=== PATIENT | female | born 1945 | race Caucasian/White ===

== ENCOUNTER → 2016-04-25 | Outpatient (CLI) | payer MEDICARE ==
--- NOTE | 2016-04-25 15:29 | XR ---
EXAMINATION TYPE: XR chest 2V DATE OF EXAM: 04/25/2016 3:25 PM COMPARISON: 03/06/2016 HISTORY: Shortness of breath TECHNIQUE: Frontal and lateral views of the chest are obtained. FINDINGS: Scattered senescent parenchymal changes noted. Hyperinflation compatible with COPD. No evidence for infiltrate. No evidence for atelectasis. Heart size is stable. Mediastinal structures are stable and grossly unremarkable. No evidence for hilar prominence. Degenerative changes dorsal spine. IMPRESSION: 1. No evidence for acute pulmonary disease.
[2016-04-25 15:58] LABS: Anisocytosis Slight; Basophils # (A) 0.1 k/uL (0-0.2); Basophils % (A) 1 %; CH 25.4; CHCM 29.7; Eosinophils # (A) 0.1 k/uL (0-0.7); Eosinophils % (A) 1 %; HCT 41.7 % (34.0-46.0); Hypochromasia Marked; Luc # (Auto) 0.14; Luc % (Auto) 2; Lymphocytes # (A) 1.2 k/uL (1.0-4.8); Lymphocytes % (A) 13 %; MCH 24.7 pg (25.0-35.0); MCHC 28.8 g/dL (31.0-37.0); MCV 85.9 fL (80.0-100.0); Mean Platelet Volume 7.9; Monocytes # (A) 0.6 k/uL (0-1.0); Monocytes % (A) 7 %; Neutrophils # (A) 7.2 k/uL (1.3-7.7); Neutrophils % (A) 78 %; RBC 4.86 m/uL (3.80-5.40); RDW 17.5 % (11.5-15.5); WBC 9.3 k/uL (3.8-10.6); WBC (Perox) 9.26
[2016-04-25 16:02] LABS: Calcium 9.6 mg/dL (8.4-10.2); Potassium 4.7 mmol/L (3.5-5.1)
[2016-04-25 16:03] LABS: INR 1.1 (<1.1); Partial Thromboplastin Time 23.7 sec (22.0-30.0); Prothrombin Time 10.6 sec (9.0-12.0)
--- NOTE | 2016-04-25 16:09 | CT ---
EXAMINATION TYPE: CT thoracic spine wo con DATE OF EXAM: 04/25/2016 3:54 PM COMPARISON: CTA chest February 17, 2016. HISTORY: Compression fracture, thoracic spine pain. CT DLP: 1378.00 mGycm Automated exposure control for dose reduction was used. FINDINGS: Osseous structures are demineralized. There is redemonstration of moderate to severe compression type fracture deformity with sclerosis at T6 vertebral body level. There is new moderate compression type fracture deformity at T7 level which is fairly sclerotic suggesting subacute in age. No linear lucen cy is seen to suggest acute fracture at this time. Slight scoliotic curvature is present on coronal i mages. Spinal canal is maintained on sagittal images. No large posterior disc herniations are present . No significant spurring is present. Review of axial images confirms no large disc herniations or spinal canal stenosis at any level of th e thoracic spine. There is background of mild to moderate emphysematous change seen. There is partial visualization of cardiomegaly with multi lead pacemaker/AICD. There is moderate calcified atheroscle rotic change of aorta and upper abdominal branch vessels. IMPRESSION: NEW BUT SUSPECTED SUBACUTE MODERATE COMPRESSION FRACTURE AT T7 LEVEL. STABLE MODERATE TO SEVERE CHRON IC COMPRESSION FRACTURE T6 LEVEL. SPINAL CANAL IS MAINTAINED. ALIGNMENT IS STABLE.
[2016-04-25 16:13] LABS: Amorphous Sediment,Urine Few /hpf; Appearance,Urine Cloudy (Clear); Bacteria,Urine Occasional /hpf; Bilirubin,Urine Negative (Negative); Calcium Oxalate Crystals,Urine Few /hpf; Glucose,Urine (UA) Negative (Negative); Ketones,Urine Negative (Negative); Leukocyte Esterase,Urine Small (Negative); Mucus,Urine Rare /hpf; Nitrite,Urine Negative (Negative); Particle Count 17271; Protein,Urine 1+ (Negative); Squamous Epithelial Cell,Urine 49 /hpf (0-4); Urobilinogen,Urine <2.0 mg/dL (<2.0); WBC,Urine 21 /hpf (0-5)
[2016-04-25 17:45] LABS: RBC,Urine 19 /hpf (0-5); UA Billing (MACRO vs. MICRO) MICRO
== END | disposition home or self-care (01) ==
LOC: RADCTMAIN 14:59
PROVIDERS: ATTEND Orthopaedic Surgery Orthopaedic Surgery of the Spine
DX: S22.059A Unspecified fracture of T5-T6 vertebra, initial encounter for closed fracture (principal); Z01.818 Encounter for other preprocedural examination; Z01.812 Encounter for preprocedural laboratory examination; Z01.810 Encounter for preprocedural cardiovascular examination
CPT/HCPCS: 36415; 71020; 72128; 80048; 81001; 85025; 85610; 85730

== ENCOUNTER 2016-05-02 11:28 | Day surgery (SDC) | payer MEDICARE ==
[2016-04-27 13:36] VITALS: BMI 29.0
[~2016-05-02 11:28] MED LIST: FAMOTIDINE 20 MG/2 ML VIAL IV PRN; LACTATED RINGERS 1,000 ML IV SCH; LIDOCAINE 1% 20 ML VIAL (10MG/ML) FOR IV START INTRADERMA PRN; ONDANSETRON 4 MG/2 ML VIAL IVP PRN; ceFAZolin 2 GM in SODIUM CHLORIDE 0.9% 100 ML IVPB ONE
[2016-05-02] MEDS ORDERED: SUCCINYLCHOLINE CHLORIDE 100 MG/5 ML SYR IV ONE (13:15)
[2016-05-02] MEDS ORDERED: LIDOCAINE 1% INJ 10MG/ML (20 ML MDV) ONE (13:15)
[2016-05-02] MEDS ORDERED: ETOMIDATE 2 MG/ML 10 ML VIAL ONE (13:15)
[2016-05-02] MEDS ORDERED: MIDAZOLAM 2 MG/2 ML VIAL ONE (13:15)
[2016-05-02] MEDS ORDERED: KETAMINE 10 MG/ML 20 ML VIAL ONE (13:15)
[2016-05-02] MEDS ORDERED: ACETAMINOPHEN IV (For NPO) 1,000 MG/100 ML VIAL ONE (13:15)
[2016-05-02] MEDS ORDERED: BUPIVACAINE (PF) 0.5% 30 ML VIAL SQ ONE ×2 (13:46)
[2016-05-02] MEDS ORDERED: IOHEXOL 180 MG/ML 1 ML ML MISCELLANE ONE (14:13)
--- NOTE | 2016-05-02 14:46 | XR ---
FLUOROSCOPY 83 seconds of fluoroscopy time were utilized during T5-6 kyphoplasty. 4 images document the procedure .
[2016-05-02] MEDS ORDERED: DIAZEPAM 5 MG TAB PO PRN (14:50)
[2016-05-02] MEDS ORDERED: IBUPROFEN 600 MG TAB PO PRN (14:50)
[2016-05-02] MEDS ORDERED: HYDROcodone/APAP 5-325MG 1 EACH TAB PO PRN (14:50)
[2016-05-02] MEDS ORDERED: BENZOCAINE/MENTHOL LOZENG 1 EACH LOZENGE MUCOUS MEM PRN (14:50)
--- NOTE | 2016-05-02 14:50 | P.OP ---
Date of Procedure: 05/02/16 Preoperative Diagnosis: T5 and T6 vertebral compression fractures, osteoporotic, subacute Thoracic back pain Osteoporosis Postoperative Diagnosis: Same Anesthesia: GETA Pathology: other (T5 and T6 vertebral body biopsies sent to pathology separately in formalin) Condition: stable Disposition: PACU Description of Procedure: BRIEF OPERATIVE NOTE Preoperative Diagnosis: Vertebral compression fractures T5 and T6, osteoporotic subacute, thoracic back pain, osteoporosis Postoperative Diagnosis: Same Procedure: Kyphoplasty T5 and T6 Vertebral body biopsy T5 and T6 Use of biplanar fluoroscopic guidance Surgeon: Dr. Georges Water Purifier Operator: Navid Zazueta is present throughout the entire the case persistence during positioning, dissection, exposure, visualization, and all crucial elements of the case as well as closure. Anesthesia: General anesthesia Estimated blood loss: Less than 10 mL Specimen: Vertebral body biopsy from T5 and T6 sent to pathology in formalin Complications: None apparent Components implanted: Bone cement Disposition: To recovery room in good stable condition. OPERATIVE INDICATIONS The patient has been having issues in their back over the past couple of months. She was found have compression fractures at T5 and T6 with osteoporosis. The patient has been through conservative treatment. We try treating her with a brace but she was not tolerating this well. They attempted conservative care with bracing however they're not having any benefit despite brace use. They continue to have significant pain and debility due to their fracture. We discussed various treatment options including surgery, and the patient wishes to proceed with surgery. The patient has significant cardiac history and she was evaluated for risk stratification with her chaser tar. We discussed the risk, patient's alternatives and benefits of surgery including but not limited to, risk of bleeding risk of infection, risk of need for further surgery, risk of decreased, loss of motion, loss of function, cement extravasation, nerve damage, paralysis, heart attack, blindness and . OPERATIVE SUMMARY After discussing all the risks, patient alternatives and benefits at length, the patient elected to proceed with surgical intervention, signed informed consent, and presented for their procedure. The patient was seen and examined in the preoperative holding area and the surgical site was marked. The patient was given antibiotics and brought to the operating room. The patient was sedated and intubated by anesthesia in standard fashion. The patient was positioned on to the operating room table in a prone position on the appropriate well-padded and well molded bilateral chest rolls. We were careful to pad any bony prominences and pressure points. We were careful to maintain the patient's cervical spine and good neutral alignment and position throughout. We used 2 C-arm machines to establish biplanar fluoroscopic guidance in AP and lateral positions. We were able to localize the fractures appropriately at T5 and T6. The patient was prepped and draped in a normal standard fashion. An appropriate timeout and keystone protocol performed. We were able to proceed with the surgery. The local wound area was infiltrated with local anesthetic. An incision was made over the lateral aspect of the pedicle over the appropriate levels with a small 2 mm stab incision on the right at T5 and T6. Intraoperative fluoroscopy was taken which showed a marker at the appropriate level at T5 and T6. With the appropriate level positively confirmed, I was able to position a sharp trocar over the lateral aspect of the pedicle. As able to advance the trocar into the pedicle and into the posterior aspect of vertebral body being careful to avoid penetration cephalad caudad or medially. The trocar was placed appropriately into the posterior aspect of vertebral body at the appropriate levels. This was confirmed with C-arm guidance. With the trocar intact I was then able to take a bone biopsy with a biopsy punch or a bony drill. The biopsy specimen was passed off to be sent to pathology in formalin. I was then able to place the kyphoplasty balloon within the vertebral body. The position was checked on C-arm. I was able to inflate the balloon under low pressure and visualization with C-arm. The balloon was well enclosed within the vertebral body. The cement was prepared. With the cement at appropriate working condition the balloons were deflated and removed. I was able to place bony cement with trocar with the cement delivery device under low pressure. It had good fill within the vertebral body. I placed approximately 3 mL of bone cement in the vertebral body at T5 in approximately 2 mL into the vertebral body of T6. There is no evidence of any extravasation of the cement posteriorly toward the canal. The cement was well contained at the appropriate levels at T5 and T6 with some of the cement into the disc spaces without evidence of protrusion posteriorly. The cement was allowed to cure appropriately. The trochars removed and final images were taken on C-arm. This showed the cement at the appropriate levels. We were able to proceed with closure. The wound was cleaned and dried and dressed with the appropriate dressing. The drapes were broken down. The patient was gently rolled back onto their hospital bed being careful to maintain their cervical spine and good neutral alignment and position. They were woken up by anesthesia, extubated, and brought to the recovery room in good stable condition. The patient will be admitted to the hospital for observation and for appropriate postoperative care, medical management and monitoring. We will continue to follow them closely about the postoperative course.
[2016-05-02] MEDS: SODIUM CHLORIDE 0.9% 1,000 ML IV SCH (18:11)
[2016-05-02] MEDS: HYDROcodone/APAP 5-325MG 1 EACH TAB PO PRN (18:13)
[2016-05-02] MEDS: ceFAZolin 2 GM in SODIUM CHLORIDE 0.9% 100 ML IVPB SCH (21:51)
[2016-05-03] MEDS: HYDROcodone/APAP 5-325MG 1 EACH TAB PO PRN ×2 (00:06→07:56)
[2016-05-03] MEDS: ceFAZolin 2 GM in SODIUM CHLORIDE 0.9% 100 ML IVPB SCH (05:05)
[2016-05-03] MEDS: SODIUM CHLORIDE 0.9% 1,000 ML IV SCH (07:36)
[2016-05-03 07:53] VITALS: BP 104/61; PULSE 60; RESP 16; TEMP 97.7
--- NOTE | 2016-05-03 08:29 | P.DS ---
Providers Date of admission: 05/02/2016 Expected date of discharge: 05/03/16 Attending physician: Gay Georges Primary care physician: Roberto Martínez - Discharge Diagnosis(es) (1) S/P kyphoplasty Current Visit: Yes Status: Acute (2) Osteoporosis Current Visit: Yes Status: Acute (3) Wedge compression fracture of T5 vertebra Current Visit: Yes Status: Acute (4) Thoracic back pain Current Visit: No Status: Acute (5) Wedge compression fracture of T6 vertebra Current Visit: No Status: Acute Hospital Course: This is a pleasant 71-year-old female who presented with T5 and T6 the tumor body compression fractures, thoracic back pain, and osteoporosis who failed outpatient conservative therapy. She admitted for T5 and T6 kyphoplasty with biopsy. The patient tolerated the procedure well and did well postoperatively. She states she has some discomfort at the incision sites but states her thoracic back pain feels significantly better as compared to prior to surgical intervention. She states she is ready for discharge home. Condition on day of discharge stable. Patient will be discharged home. Patient was cleared preoperatively for surgery by Dr. Martínez. Patient currently denies any nausea , vomiting, fever, or chills. Patient is eating and voiding freely without difficulty. Patient may shower Tegaderm dressing intact. Patient may remove Tegaderm dressing in 3 days and shower without a dressing at that time. Patient should keep Steri-Strips intact and allow them to fall off naturally. Patient should refrain from driving until at least after their first follow-up appointment in the office. Patient should avoid excessive bending, lifting, and twisting; no lifting greater than 10 pounds. Patient given a prescription for [place] 7.5 mg/325 mg 1 tab every 6 hours as needed for pain. Physical Exam on day of discharge: Patient is awake, alert, and oriented 3 Vital signs stable Good chest excursion with deep inspiration and expiration Abdomen soft nontender No signs or symptoms of DVT; no calf pain; pneumatic cuffs intact bilateral lower extremities Extensor hallucis longus, plantarflexion, and dorsiflexion positive sustained bilateral lower extremities Incisions over the thoracic spine on clean, dry, and intact; no erythema, purulence, or signs of infection Tegaderm dressing and non-stick Telfa intact Procedures: T5 and T6 kyphoplasty with biopsy Patient Condition at Discharge: Stable Plan - Discharge Summary New Discharge Prescriptions: HYDROcodone/APAP 7.5-325MG [[place] 7.5-325] 1 tab PO Q6HR PRN #90 tab PRN Reason: Severe Pain Discharge Medication List Albuterol Sulfate [Ventolin HFA] 1 puff INHALATION RT-Q4H PRN 04/16/14 [History] Ergocalciferol (Vitamin D2) [Drisdol] 50,000 unit PO WE 04/16/14 [History] Multivitamins, Thera [Multivitamin] 1 tab PO DAILY 12/10/14 [History] ALPRAZolam [Xanax] 0.25 mg PO BID PRN #30 tab 01/07/15 [Rx] HYDROcodone/APAP 7.5-325MG [[place] 7.5-325] 1 tab PO Q6HR PRN 04/22/15 [History] Omeprazole [PriLOSEC] 20 mg PO AC-BRKFST #30 cap 04/25/15 [Rx] Atorvastatin [Lipitor] 40 mg PO HS 08/17/15 [History] Amiodarone [Cordarone] 200 mg PO HS 09/17/15 [History] Spironolactone [Aldactone] 25 mg PO DAILY@1700 10/30/15 [History] Furosemide [Lasix] 80 mg PO DAILY #0 03/08/16 [Rx] Furosemide [Lasix] 30 mg PO HS 04/27/16 [History] Levofloxacin [Levaquin] 500 mg PO DAILY 04/27/16 [History] Levothyroxine Sodium [Synthroid] 137 mcg PO 1200 04/27/16 [History] Mexiletine [Mexitil] 150 mg PO Q12HR 04/27/16 [History] Baclofen [Lioresal] 5 mg PO TID PRN 05/02/16 [History] HYDROcodone/APAP 7.5-325MG [[place] 7.5-325] 1 tab PO Q6HR PRN #90 tab 05/02/16 [ Rx] Metoprolol Succinate (ER) [Toprol XL] 25 mg PO BID 05/02/16 [History] Follow up Appointment(s)/Referral(s): Gay Georges DO [Doctor of Osteopathic Medicine] - 2 Weeks Activity/Diet/Wound Care/Special Instructions: Keep site clean. May shower with waterproof dressing intact. On May remove dressing and then may shower with area uncovered, but leave Steri-Strips intact and allow them to fray off on their own. Avoid heavy or rigorous activity. May ambulate to tolerance. Avoid lifting greater than 15 pounds. No repetitive bending twisting or lifting. Discharge Disposition: HOME SELF-CARE
== END 2016-05-03 09:55 | disposition home or self-care (01) ==
LOC: OR 11:28 → 5MS5E 14:29 → OR 05-03 09:55
PROVIDERS: ATTEND Orthopaedic Surgery Orthopaedic Surgery of the Spine
DX: M48.54XA Collapsed vertebra, not elsewhere classified, thoracic region, initial encounter for fracture (principal); R07.89 Other chest pain; R06.02 Shortness of breath; I10 Essential (primary) hypertension; F41.9 Anxiety disorder, unspecified; J44.9 Chronic obstructive pulmonary disease, unspecified; Z87.891 Personal history of nicotine dependence; I51.9 Heart disease, unspecified; E78.5 Hyperlipidemia, unspecified; E03.9 Hypothyroidism, unspecified; K21.9 Gastro-esophageal reflux disease without esophagitis; Z79.899 Other long term (current) drug therapy; Z88.5 Allergy status to narcotic agent; Z88.6 Allergy status to analgesic agent; Z91.041 Radiographic dye allergy status; Z88.8 Allergy status to other drugs, medicaments and biological substances; Z88.1 Allergy status to other antibiotic agents; Z91.013 Allergy to seafood
CPT/HCPCS: 93005; 72100; 22513; 22515; J2250; Q9965; J0690 ×2; J2405; J2001; J0131; J0330; 88307; 88311

== ENCOUNTER → 2016-08-02 | Outpatient (CLI) | payer MEDICARE ==
--- NOTE | 2016-08-02 14:15 | CT ---
EXAMINATION TYPE: CT brain wo con DATE OF EXAM: 08/02/2016 2:05 PM COMPARISON: 12/17/2015 HISTORY: Patient complains of severe headache x3 days. CT DLP: 845.[address] of the brain was performed. The ventricles, basal cisterns and sulci overlying the cerebral convexities demonstrate moderate enla rgement. There is no evidence for intracranial hemorrhage or sulcal effacement. There is decreased attenuation about the periventricular white matter and deep white matter of both c erebral hemispheres, compatible with chronic small vessel ischemia. Differential diagnosis does inclu de demyelination. No mass effects are seen.No midline shift. Osseous calvarium is intact. If symptoms persist consider MRI. IMPRESSION: 1. Age related atrophic and chronic small vessel ischemic change without acute intracranial process s een at this time.
== END | disposition home or self-care (01) ==
LOC: RADCTMAIN 13:35
PROVIDERS: ATTEND Family Medicine
DX: G31.9 Degenerative disease of nervous system, unspecified (principal); I67.82 Cerebral ischemia
CPT/HCPCS: 70450

== ENCOUNTER 2016-08-08 16:20 | Emergency (ER) | payer MEDICARE ==
[2016-08-08 16:31] VITALS: BP 104/73; PULSE 87; RESP 18; TEMP 98.5
--- NOTE | 2016-08-08 16:49 | ED ---
Fall HPI - General Chief Complaint: Fall Stated Complaint: Fall-Arm laceration Time Seen by Provider: 08/08/16 16:32 Source: patient, RN notes reviewed Mode of arrival: ambulatory - History of Present Illness Initial Comments: Patient is a 71-year-old female presents to the emergency room for evaluation of fall injury. patient states she was walking out of her door and when hit the door and she fell on her left side. Patient states she did hit her head. Patient denies loss of consciousness. Patient states she has a minor headache. Patient denies dizziness, ear pain, neck pain. Patient states she also landed on her left shoulder. Patient is complaining of left shoulder pain. Patient denies tingling going down her fingers. patient also states she has abrasions over her left forearm. Patient denies back pain. Patient denies chest pain. Patient denies taking blood thinners. Patient states she took a [place] shortly before arrival. Patient denies pain with pain. Patient denies any other injuries during incident. - Related Data Home Medications Medication Instructions Recorded Confirmed Albuterol Sulfate [Ventolin HFA] 1 puff INHALATION RT-Q4H PRN 04/16/14 05/02/16 Ergocalciferol (Vitamin D2) 50,000 unit PO WE 04/16/14 05/02/16 [Drisdol] Multivitamins, Thera [Multivitamin 1 tab PO DAILY 12/10/14 04/27/16 (formulary)] HYDROcodone/APAP 7.5-325MG [[place] 1 tab PO Q6HR PRN 04/22/15 05/02/16 7.5-325] Atorvastatin [Lipitor] 40 mg PO HS 08/17/15 05/02/16 Amiodarone [Cordarone] 200 mg PO HS 09/17/15 05/02/16 Spironolactone [Aldactone] 25 mg PO DAILY@1700 10/30/15 05/02/16 Furosemide [Lasix] 30 mg PO HS 04/27/16 05/02/16 Levofloxacin [Levaquin] 500 mg PO DAILY 04/27/16 05/02/16 Levothyroxine Sodium [Synthroid] 137 mcg PO 1200 04/27/16 05/02/16 Mexiletine [Mexitil] 150 mg PO Q12HR 04/27/16 05/02/16 Baclofen [Lioresal] 5 mg PO TID PRN 05/02/16 05/02/16 Metoprolol Succinate (ER) [Toprol 25 mg PO BID 05/02/16 05/02/16 XL] Previous Rx's Medication Instructions Recorded ALPRAZolam [Xanax] 0.25 mg PO BID PRN #30 tab 01/07/15 Omeprazole [PriLOSEC] 20 mg PO AC-BRKFST #30 cap 04/25/15 Furosemide [Lasix] 80 mg PO DAILY #0 03/08/16 HYDROcodone/APAP 7.5-325MG [[place] 1 tab PO Q6HR PRN #90 tab 05/02/16 7.5-325] Allergies Allergy/AdvReac Type Severity Reaction Status Date / Time hydromorphone HCl Allergy SHORTNESS Verified 08/08/16 16:31 [From Dilaudid] OF BREATH Iodinated Contrast Media - Allergy Rash/Hives Verified 08/08/16 16:31 Oral and with [Iodinated Contrast Media - nausea and IV Dye] confusion phenytoin sodium Allergy Nausea & Verified 08/08/16 16:31 [From Dilantin] Vomiting shellfish derived Allergy Swelling/Ra Verified 08/08/16 16:31 sh fentanyl AdvReac Severe Anaphylaxis Verified 08/08/16 16:31 morphine AdvReac Severe Anaphylaxis Verified 08/08/16 16:31 aspirin AdvReac Nausea & Verified 08/08/16 16:31 Vomiting ciprofloxacin [From Cipro] AdvReac counteracts Verified 08/08/16 16:31 w/heart meds. codeine AdvReac Rash/Hives Verified 08/08/16 16:31 Mushroom AdvReac swelling/ra Verified 08/08/16 16:31 sh Review of Systems ROS Statement: Those systems with pertinent positive or pertinent negative responses have been documented in the HPI. ROS Other: All systems not noted in ROS Statement are negative. Past Medical History Past Medical History: Atrial Fibrillation, Atrial Flutter, Cancer, Heart Failure , COPD, CVA/TIA, GI Bleed, Hyperlipidemia, Hypertension, Myocardial Infarction ( MT), Pneumonia, Thyroid Disorder, Vascular Disorder Additional Past Medical History / Comment(s): Acute renal failure due to diuretics, hypokalemia due to diuretics, nonsustained Vtach and moderate mitral regurgitation, CVA in 2011, MT's, ischemic cardiomyopathy, PVD, THYROID CA with surgery, anemia due to lower GI bleed, diverticulitis, sinus problems, vertebral fx (disc number unk), back pain. Last Myocardial Infarction Date:: 2012 History of Any Multi-Drug Resistant Organisms: None Reported Past Surgical History: Ablation, AICD, Back Surgery, Cardiac Ablation, Heart Catheterization With Stent, Pacemaker, Tubal Ligation Additional Past Surgical History / Comment(s): Cardiac ablation/AV node modification, 09/2012 arterial repair post ablation done at [place], cardioversion, arch/aortagram, total of 3 cardiac stents, THYROIDECTOMY, TROY CARPAL TUNNEL, colonoscopy. Past Anesthesia/Blood Transfusion Reactions: No Reported Reaction Date of Last Stent Placement:: 06-04-08 Type of Cardiac Device: Permanent Pacemaker, AICD Device Placement Date:: 02-04-13 AICD with pacer added 11/02/15 Past Psychological History: Anxiety, Panic Disorder Additional Psychological History / Comment(s): Pt has xanax which helps her anxiety. She has anxiety/panic attack if anything covers her face. Pt resides with her lauraRoxanne. She uses no assistive device. She drives short distances. Smoking Status: Former smoker Past Alcohol Use History: None Reported Additional Past Alcohol Use History / Comment(s): STARTED SMOKING AT AGE 14-1958 , SMOKED 1 PPD, QUIT 2007 Past Drug Use History: None Reported - Past Family History Sister(s) Family Medical History: Cancer Brother(s) Family Medical History: Cancer Father Family Medical History: No Reported History Additional Family Medical History / Comment(s): Father had head trauma due to MVA and 6 months later. Mother Family Medical History: Myocardial Infarction (MT) Additional Family Medical History / Comment(s): Mother of a MT at the age of 75 yrs. Son(s) Family Medical History: Cancer General Exam - General Exam Comments Initial Comments: sitting in exam room, acute distress. Limitations: no limitations General appearance: alert, in no apparent distress Head exam: Present: atraumatic, normocephalic, normal inspection Eye exam: Present: normal appearance, PERRL, EOMI Pupils: Present: normal accommodation ENT exam: Present: normal exam Neck exam: Present: normal inspection, full ROM. Absent: tenderness, lymphadenopathy Respiratory exam: Present: normal lung sounds bilaterally. Absent: respiratory distress Cardiovascular Exam: Present: regular rate, normal rhythm, normal heart sounds Left Shoulder Exam: Present: normal inspection, full ROM, tenderness (anterior shoulder joint). Absent: swelling, tenderness over AC joint Upper Arm exam: Present: normal inspection, full ROM. Absent: tenderness Elbow exam: Absent: tenderness Forearm Wrist exam: Absent: tenderness Hand Wrist exam: Present: abrasion (3 skin tears over left forearm/hand. 2 skin tears and forearm 2 cm in diameter and one smaller skin tear over base of left thumb.) Neuro motor exam: Present: wrist extension intact, thumb opposition intact, thumb IP flexion intact, thumb adduction intact, fingers 2-5 abduction intact Vascular: Present: normal capillary refill (capillary refill less than 2 seconds ), radial pulse (2+), ulnar pulse (2+) Back exam: Present: normal inspection Neurological exam: Present: alert, oriented X3, CN II-XII intact, normal gait Expanded Patient oriented to: Present: person, place, time Speech: Present: fluid speech Cranial nerves: EOM's Intact: Normal, Facial Sensation: Normal Sensory exam: Upper Extremity Light Touch: Normal, Lower Extremity Light Touch: Normal Motor strength exam: RUE: 5, LUE: 5, RLE: 5, LLE: 5 Eye Response: (4) open spontaneously Motor Response: (6) obeys commands Verbal Response: (5) oriented Psychiatric exam: Present: normal affect, normal mood Skin exam: Present: warm, dry. Absent: rash Course Vital Signs 08/08/16 16:27 Temperature 98.5 F Pulse Rate 87 Respiratory 18 Rate Blood Pressure 104/73 O2 Sat by Pulse 97 Oximetry Medical Decision Making - Medical Decision Making Patient is a 71-year-old female presents to the emergency room for evaluation of fall injury. Brain/C-spine CT negative for any acute findings. Shoulder x- ray negative for any acute findings. Skin tears were cleaned and covered. Advised patient to follow-up with primary care provider for reevaluation in 24- 48 hours. Patient states she understands everything that was discussed with her. Return parameters discussed. Case discussed with Dr. Rivera. - Radiology Data Radiology results: report reviewed, image reviewed Disposition Clinical Impression: Skin tear of left upper extremity, Fall, Closed head injury, Contusion of left shoulder Disposition: HOME SELF-CARE Condition: Good Instructions: Fall Prevention for Older Adults (ED), Head Injury (ED), Shoulder Sprain (ED), Skin Tear (ED) Additional Instructions: Tylenol as needed for pain. Please follow-up with primary care provider in 24- 48 hours for reevaluation. If any new symptom arises or symptoms worsen, return to ER as soon as possible. Referrals: Roberto Martínez DO [Primary Care Provider] - 1-2 days Time of Disposition: 17:26
--- NOTE | 2016-08-08 17:16 | CT ---
EXAMINATION TYPE: CT brain aurea wo con DATE OF EXAM: 08/08/2016 5:08 PM COMPARISON: 08/02/[address] scan HISTORY: Fall today Left sided injury CT DLP: 1384.6 mGycm Automated exposure control for dose reduction was used. TECHNIQUE: CT scan of the head and cervical spine are performed without contrast. FINDINGS: There is cerebral cortical atrophy. There is moderate patchy hypodensity in the periventr icular white matter. There is no mass effect. Calvarium is intact. There is no sign of intracranial h emorrhage. There is some straightening of the cervical spine from C5 to T1. There is spurring of the endplates f rom C4 to C7 with disc space narrowing. Facet joints are intact. There is some hypertrophic facet art hropathy on the right side. Skull base is intact. I see no fracture. IMPRESSION: Cerebral atrophy and chronic small vessel ischemia without significant change compared to last exam. No hemorrhage. Moderate spondylosis in the mid and lower cervical spine. No fracture.
--- NOTE | 2016-08-08 17:18 | XR ---
EXAMINATION TYPE: XR shoulder complete LT DATE OF EXAM: 08/08/2016 5:11 PM COMPARISON: NONE HISTORY: Shoulder pain TECHNIQUE: 3 views FINDINGS: I see no fracture nor dislocation. Joint spaces are normal. There are no pathologic calcifi cations. IMPRESSION: Negative left shoulder exam.
== END 2016-08-08 17:49 | disposition home or self-care (01) ==
LOC: EC 16:20
DX: S51.812A Laceration without foreign body of left forearm, initial encounter (principal); S40.012A Contusion of left shoulder, initial encounter; S09.90XA Unspecified injury of head, initial encounter; I48.91 Unspecified atrial fibrillation; I11.0 Hypertensive heart disease with heart failure; I50.9 Heart failure, unspecified; E07.9 Disorder of thyroid, unspecified; E78.5 Hyperlipidemia, unspecified; I25.2 Old myocardial infarction; J44.9 Chronic obstructive pulmonary disease, unspecified; F41.9 Anxiety disorder, unspecified; F41.0 Panic disorder [episodic paroxysmal anxiety]; Z85.850 Personal history of malignant neoplasm of thyroid; Z87.891 Personal history of nicotine dependence; Z79.899 Other long term (current) drug therapy; Z91.041 Radiographic dye allergy status; Z91.013 Allergy to seafood; Z88.5 Allergy status to narcotic agent; Z88.6 Allergy status to analgesic agent; Z91.018 Allergy to other foods; Z88.1 Allergy status to other antibiotic agents; Z88.8 Allergy status to other drugs, medicaments and biological substances; W18.09XA Striking against other object with subsequent fall, initial encounter
CPT/HCPCS: 70450; 72125; 99284

== ENCOUNTER 2016-08-21 06:00 | Observation (INO) | payer MEDICARE ==
[2016-08-21] MEDS ORDERED: MORPHINE SULFATE 4 MG/ML SYRINGE IV STA (06:20)
--- NOTE | 2016-08-21 06:24 | ED ---
Back Pain HPI - General Chief Complaint: Back Pain/Injury Stated Complaint: Back spasm Time Seen by Provider: 08/21/16 06:11 Source: patient, EMS - History of Present Illness Initial Comments: This patient is a 71-year-old woman who states that she got up to use the bathroom around 4:30 in the morning and fell resulting in pain across her pelvic area and the low back. Patient phoned EMS who brought her here. Patient denies other injuries in the fall. She states she did not have loss of consciousness. She denies weakness or numbness of the legs. She denies loss continence. MD Complaint: back injury, fall Onset/Timin -: hour(s) Similar Symptoms Previously: No Place: home Radiation: none Severity: severe Quality: sharp Consistency: constant Improves With: none Worsens With: medication Context: fall - Related Data Home Medications Medication Instructions Recorded Confirmed Albuterol Sulfate [Ventolin HFA] 1 puff INHALATION RT-Q4H PRN 04/16/14 08/21/16 Ergocalciferol (Vitamin D2) 50,000 unit PO WE 04/16/14 08/21/16 [Drisdol] Multivitamins, Thera [Multivitamin 1 tab PO DAILY 12/10/14 08/21/16 (formulary)] Atorvastatin [Lipitor] 40 mg PO HS 08/17/15 08/21/16 Amiodarone [Cordarone] 200 mg PO HS 09/17/15 08/21/16 Spironolactone [Aldactone] 25 mg PO DAILY@1700 10/30/15 08/21/16 Mexiletine [Mexitil] 150 mg PO Q8HR 04/27/16 08/21/16 Baclofen [Lioresal] 5 mg PO TID PRN 05/02/16 08/21/16 Metoprolol Succinate (ER) [Toprol 50 mg PO BID 05/02/16 08/21/16 XL] Levothyroxine Sodium [Synthroid] 125 mcg PO DAILY 08/21/16 08/21/16 Previous Rx's Medication Instructions Recorded ALPRAZolam [Xanax] 0.25 mg PO BID PRN #30 tab 01/07/15 Omeprazole [PriLOSEC] 20 mg PO AC-BRKFST #30 cap 04/25/15 Furosemide [Lasix] 80 mg PO DAILY #0 03/08/16 HYDROcodone/APAP 7.5-325MG [[place] 1 tab PO Q6HR PRN #90 tab 05/02/16 7.5-325] Allergies Allergy/AdvReac Type Severity Reaction Status Date / Time hydromorphone HCl Allergy SHORTNESS Verified 08/21/16 10:28 [From Dilaudid] OF BREATH Iodinated Contrast Media - Allergy Rash/Hives Verified 08/21/16 10:28 Oral and with [Iodinated Contrast Media - nausea and IV Dye] confusion levofloxacin Allergy Rash/Hives Verified 08/21/16 10:28 phenytoin sodium Allergy Nausea & Verified 08/21/16 10:28 [From Dilantin] Vomiting shellfish derived Allergy Swelling/Ra Verified 08/21/16 10:28 sh fentanyl AdvReac Severe Anaphylaxis Verified 08/21/16 10:28 morphine AdvReac Severe Anaphylaxis Verified 08/21/16 10:28 aspirin AdvReac Nausea & Verified 08/21/16 10:28 Vomiting ciprofloxacin [From Cipro] AdvReac counteracts Verified 08/21/16 10:28 w/heart meds. codeine AdvReac Rash/Hives Verified 08/21/16 10:28 Mushroom AdvReac swelling/ra Verified 08/21/16 10:28 sh CONTRAST DYE AdvReac Unknown Uncoded 08/21/16 10:28 Review of Systems ROS Statement: Those systems with pertinent positive or pertinent negative responses have been documented in the HPI. ROS Other: All systems not noted in ROS Statement are negative. Constitutional: Denies: fever, weakness Respiratory: Denies: cough, dyspnea Cardiovascular: Denies: chest pain, orthopnea, syncope Gastrointestinal: Denies: abdominal pain, vomiting, diarrhea Genitourinary: Denies: dysuria, hematuria Musculoskeletal: Reports: as per HPI, back pain, other (Previous clavicle fracture) Skin: Denies: rash Neurological: Denies: headache, weakness, numbness Past Medical History Past Medical History: Atrial Fibrillation, Atrial Flutter, Cancer, Heart Failure , COPD, CVA/TIA, GI Bleed, Hyperlipidemia, Hypertension, Myocardial Infarction ( [place]), Pneumonia, Thyroid Disorder, Vascular Disorder Additional Past Medical History / Comment(s): Acute renal failure due to diuretics, hypokalemia due to diuretics, nonsustained Vtach and moderate mitral regurgitation, CVA in 2012, AR's, ischemic cardiomyopathy, PVD, THYROID CA with surgery, anemia due to lower GI bleed, diverticulitis, sinus problems, vertebral fx (disc number unk), back pain. Last Myocardial Infarction Date:: 2012 History of Any Multi-Drug Resistant Organisms: None Reported Past Surgical History: Ablation, AICD, Back Surgery, Cardiac Ablation, Heart Catheterization With Stent, Pacemaker, Tubal Ligation Additional Past Surgical History / Comment(s): Cardiac ablation/AV node modification, 09/2012 arterial repair post ablation done at [place], cardioversion, arch/aortagram, total of 3 cardiac stents, THYROIDECTOMY, TROY CARPAL TUNNEL, colonoscopy. Past Anesthesia/Blood Transfusion Reactions: No Reported Reaction Date of Last Stent Placement:: 06-04-08 Type of Cardiac Device: Permanent Pacemaker, AICD Device Placement Date:: 02-04-13 AICD with pacer added 11/02/15 Past Psychological History: Anxiety, Panic Disorder Additional Psychological History / Comment(s): Pt has xanax which helps her anxiety. She has anxiety/panic attack if anything covers her face. Pt resides with her lauraRoxanne. She uses no assistive device. She drives short distances. Smoking Status: Former smoker Past Alcohol Use History: None Reported Additional Past Alcohol Use History / Comment(s): STARTED SMOKING AT AGE 14-1958 , SMOKED 1 PPD, QUIT 2007 Past Drug Use History: None Reported - Past Family History Sister(s) Family Medical History: Cancer Brother(s) Family Medical History: Cancer Father Family Medical History: No Reported History Additional Family Medical History / Comment(s): Father had head trauma due to MVA and 6 months later. Mother Family Medical History: Myocardial Infarction (AR) Additional Family Medical History / Comment(s): Mother of a AR at the age of 75 yrs. Son(s) Family Medical History: Cancer General Exam General appearance: alert, in no apparent distress Head exam: Present: atraumatic, normocephalic, normal inspection Eye exam: Present: normal appearance. Absent: scleral icterus, conjunctival injection ENT exam: Present: mucous membranes dry Neck exam: Present: normal inspection, full ROM. Absent: tenderness, meningismus Respiratory exam: Present: normal lung sounds bilaterally. Absent: respiratory distress, wheezes, rales, rhonchi, stridor, chest wall tenderness Cardiovascular Exam: Present: regular rate, normal rhythm, normal heart sounds. Absent: systolic murmur, diastolic murmur, rubs, gallop GI/Abdominal exam: Present: soft. Absent: distended, tenderness, guarding, rebound, mass Extremities exam: Present: normal inspection, normal capillary refill. Absent: pedal edema, calf tenderness Neurological exam: Present: alert, reflexes normal. Absent: motor sensory deficit Skin exam: Present: warm, dry, intact, normal color. Absent: rash, cyanosis, diaphoretic, erythema, petechiae, pallor, mottled Course Vital Signs 08/21/16 08/21/16 08/21/16 06:02 08:40 09:15 Temperature 97.8 F Pulse Rate 66 59 L 58 L Respiratory 18 16 16 Rate Blood Pressure 114/79 104/67 105/71 O2 Sat by Pulse 94 L 94 L 100 Oximetry Medical Decision Making - Medical Decision Making Patient 71-year-old woman with recent fall and back pain which is preventing her from ambulating. We'll admit the patient to have spine consultation. - Lab Data Result diagrams: 08/21/16 06:53 08/21/16 06:53 Lab Results 08/21/16 08/21/16 08/21/16 Range/Units 06:53 06:53 06:53 WBC 7.6 (3.8-10.6) k/uL RBC 4.88 (3.80-5.40) m/uL Hgb 12.7 (11.4-16.0) gm/dL Hct 41.4 (34.0-46.0) % MCV 84.8 (80.0-100.0) fL MCH 26.1 (25.0-35.0) pg MCHC 30.7 L (31.0-37.0) g/dL RDW 16.8 H (11.5-15.5) % Plt Count 233 (150-450) k/uL Neutrophils % 73 % Lymphocytes % 16 % Monocytes % 7 % Eosinophils % 1 % Basophils % 1 % Neutrophils # 5.5 (1.3-7.7) k/uL Lymphocytes # 1.2 (1.0-4.8) k/uL Monocytes # 0.6 (0-1.0) k/uL Eosinophils # 0.1 (0-0.7) k/uL Basophils # 0.1 (0-0.2) k/uL Hypochromasia Marked Anisocytosis Slight PT (9.0-12.0) sec INR (<1.1) APTT (22.0-30.0) sec Sodium 141 (137-145) mmol/L Potassium 4.3 (3.5-5.1) mmol/L Chloride 103 (98-107) mmol/L Carbon Dioxide 25 (22-30) mmol/L Anion Gap 13 mmol/L BUN 33 H (7-17) mg/dL Creatinine 1.52 H (0.52-1.04) mg/dL Est GFR (MDRD) Af Amer 41 (>60 ml/min/1.73 sqM) Est GFR (MDRD) Non-Af 34 (>60 ml/min/1.73 sqM) Glucose 103 H (74-99) mg/dL Plasma Lactic Acid Ravin (0.7-2.0) mmol/L Calcium 8.9 (8.4-10.2) mg/dL Total Bilirubin 1.0 (0.2-1.3) mg/dL AST 33 (14-36) U/L ALT 28 (9-52) U/L Alkaline Phosphatase 126 (38-126) U/L Total Creatine Kinase 138 H (30-135) U/L CK-MB (CK-2) 1.6 (0.0-2.4) ng/mL CK-MB (CK-2) Rel Index 1.2 Troponin I 0.019 (0.000-0.034) ng/mL Total Protein 6.9 (6.3-8.2) g/dL Albumin 4.0 (3.5-5.0) g/dL Urine Color Urine Appearance (Clear) Urine pH (5.0-8.0) Ur Specific [place] (1.001-1.035) Urine Protein (Negative) Urine Glucose (UA) (Negative) Urine Ketones (Negative) Urine Blood (Negative) Urine Nitrite (Negative) Urine Bilirubin (Negative) Urine Urobilinogen (<2.0) mg/dL Ur Leukocyte Esterase (Negative) Urine RBC (0-5) /hpf Urine WBC (0-5) /hpf Ur Squamous Epith Cells (0-4) /hpf Urine Bacteria (None) /hpf Hyaline Casts (0-2) /lpf Urine Mucus (None) /hpf Serum Alcohol <10 mg/dL 08/21/16 08/21/16 08/21/16 Range/Units 06:53 06:53 08:26 WBC (3.8-10.6) k/uL RBC (3.80-5.40) m/uL Hgb (11.4-16.0) gm/dL Hct (34.0-46.0) % MCV (80.0-100.0) fL MCH (25.0-35.0) pg MCHC (31.0-37.0) g/dL RDW (11.5-15.5) % Plt Count (150-450) k/uL Neutrophils % % Lymphocytes % % Monocytes % % Eosinophils % % Basophils % % Neutrophils # (1.3-7.7) k/uL Lymphocytes # (1.0-4.8) k/uL Monocytes # (0-1.0) k/uL Eosinophils # (0-0.7) k/uL Basophils # (0-0.2) k/uL Hypochromasia Anisocytosis PT 11.0 (9.0-12.0) sec INR 1.1 (<1.1) APTT 23.5 (22.0-30.0) sec Sodium (137-145) mmol/L Potassium (3.5-5.1) mmol/L Chloride (98-107) mmol/L Carbon Dioxide (22-30) mmol/L Anion Gap mmol/L BUN (7-17) mg/dL Creatinine (0.52-1.04) mg/dL Est GFR (MDRD) Af Amer (>60 ml/min/1.73 sqM) Est GFR (MDRD) Non-Af (>60 ml/min/1.73 sqM) Glucose (74-99) mg/dL Plasma Lactic Acid Ravin 1.3 (0.7-2.0) mmol/L Calcium (8.4-10.2) mg/dL Total Bilirubin (0.2-1.3) mg/dL AST (14-36) U/L ALT (9-52) U/L Alkaline Phosphatase (38-126) U/L Total Creatine Kinase (30-135) U/L CK-MB (CK-2) (0.0-2.4) ng/mL CK-MB (CK-2) Rel Index Troponin I (0.000-0.034) ng/mL Total Protein (6.3-8.2) g/dL Albumin (3.5-5.0) g/dL Urine Color Yellow Urine Appearance Cloudy H (Clear) Urine pH 5.5 (5.0-8.0) Ur Specific [place] 1.013 (1.001-1.035) Urine Protein Negative (Negative) Urine Glucose (UA) Negative (Negative) Urine Ketones Negative (Negative) Urine Blood Negative (Negative) Urine Nitrite Negative (Negative) Urine Bilirubin Negative (Negative) Urine Urobilinogen 2.0 (<2.0) mg/dL Ur Leukocyte Esterase Small H (Negative) Urine RBC <1 (0-5) /hpf Urine WBC 12 H (0-5) /hpf Ur Squamous Epith Cells 7 H (0-4) /hpf Urine Bacteria Rare H (None) /hpf Hyaline Casts 5 H (0-2) /lpf Urine Mucus Rare H (None) /hpf Serum Alcohol mg/dL Disposition Clinical Impression: Closed T12 fracture, Fall Disposition: ADMITTED IP TO THIS HOSP
[2016-08-21] MEDS ORDERED: HYDROcodone/APAP 10-325MG 1 EACH TAB PO STA (06:33)
[2016-08-21 07:12] LABS: Anisocytosis Slight; Basophils # (A) 0.1 k/uL (0-0.2); Basophils % (A) 1 %; CH 25.6; CHCM 30.4; Eosinophils # (A) 0.1 k/uL (0-0.7); Eosinophils % (A) 1 %; HCT 41.4 % (34.0-46.0); HDW 3.09; HGB 12.7 gm/dL (11.4-16.0); Hypochromasia Marked; Luc # (Auto) 0.17; Luc % (Auto) 2; Lymphocytes # (A) 1.2 k/uL (1.0-4.8); Lymphocytes % (A) 16 %; MCH 26.1 pg (25.0-35.0); MCHC 30.7 g/dL (31.0-37.0); MCV 84.8 fL (80.0-100.0); Mean Platelet Volume 7.1; Monocytes # (A) 0.6 k/uL (0-1.0); Monocytes % (A) 7 %; Neutrophils # (A) 5.5 k/uL (1.3-7.7); Neutrophils % (A) 73 %; RBC 4.88 m/uL (3.80-5.40); RDW 16.8 % (11.5-15.5); WBC 7.6 k/uL (3.8-10.6); WBC (Perox) 7.87
[2016-08-21 07:23] LABS: INR 1.1 (<1.1); Partial Thromboplastin Time 23.5 sec (22.0-30.0)
[2016-08-21 07:26] LABS: ALT 28 U/L (9-52); AST 33 U/L (14-36); Alcohol <10 mg/dL; Alkaline Phosphatase 126 U/L (38-126); Anion Gap 13 mmol/L; Blood Urea Nitrogen 33 mg/dL (7-17); Calcium 8.9 mg/dL (8.4-10.2); Carbon Dioxide 25 mmol/L (22-30); Chloride 103 mmol/L (98-107); Glucose 103 mg/dL (74-99); Non-African American GFR(MDRD) 34 (>60 ml/min/1.73 sqM); Potassium 4.3 mmol/L (3.5-5.1); Sodium 141 mmol/L (137-145); Total Protein 6.9 g/dL (6.3-8.2)
--- NOTE | 2016-08-21 07:43 | XR ---
EXAMINATION TYPE: XR pelvis AP view DATE OF EXAM: 08/21/2016 CLINICAL HISTORY: pain TECHNIQUE: Single view the pelvis is submitted. FINDINGS: No evidence for fracture, dislocation or bony lesion. Joint spaces are well-preserved. S I joints appear symmetric. IMPRESSION: 1. No acute fracture or dislocation seen. ICD 10 NO FRACTURE, INITIAL EVALUATION
[2016-08-21 07:44] LABS: Creatine Kinase MB 1.6 ng/mL (0.0-2.4); Troponin I 0.019 ng/mL (0.000-0.034)
--- NOTE | 2016-08-21 07:46 | XR ---
EXAMINATION TYPE: XR lumbar spine 2 or 3V DATE OF EXAM: 08/21/2016 CLINICAL HISTORY: pain TECHNIQUE: Three views of the lumbar spine are submitted. COMPARISON: None. FINDINGS: There are 5 lumbar type vertebral bodies identified. The lumbar spine shows satisfactory alignment w ithout evidence of acute fracture or dislocation. Mild superior endplate loss of height of T12 uncert ain age or etiology. Lumbar segments are intact. Mild multilevel degenerative disc disease. The over lying soft tissue appears unremarkable. IMPRESSION: Mild superior endplate loss of height of T12 uncertain age or etiology. Lumbar segments are intact.
--- NOTE | 2016-08-21 07:47 | XR ---
EXAMINATION TYPE: XR chest 1V portable DATE OF EXAM: 08/21/2016 COMPARISON: April 25, 2016 HISTORY: Shortness of breath TECHNIQUE: Frontal and lateral views of the chest are obtained. FINDINGS: Scattered senescent parenchymal changes noted. Hyperinflation compatible with COPD. No evidence for infiltrate. No evidence for atelectasis. Heart size is stable. Mediastinal structures are stable and grossly unremarkable. No evidence for hilar prominence. Degenerative changes dorsal spine. Chronic deformity distal left clavicle. IMPRESSION: 1. No evidence for acute pulmonary disease.
[2016-08-21 08:39] LABS: Appearance,Urine Cloudy (Clear); Bacteria,Urine Rare /hpf; Bilirubin,Urine Negative (Negative); Glucose,Urine (UA) Negative (Negative); Ketones,Urine Negative (Negative); Leukocyte Esterase,Urine Small (Negative); Mucus,Urine Rare /hpf; Nitrite,Urine Negative (Negative); PH, Urine 5.5 (5.0-8.0); Particle Count 6066; Protein,Urine Negative (Negative); RBC,Urine <1 /hpf (0-5); Specific Gravity,Urine 1.013 (1.001-1.035); Squamous Epithelial Cell,Urine 7 /hpf (0-4); UA Billing (MACRO vs. MICRO) MICRO; WBC,Urine 12 /hpf (0-5)
[2016-08-21] MEDS ORDERED: ACETAMINOPHEN TAB 325 MG TAB PO PRN (09:02)
[2016-08-21] MEDS ORDERED: NALOXONE 0.4 MG/ML 1 ML VIAL IV PRN (09:02)
[2016-08-21] MEDS ORDERED: ALPRAZolam 0.25 MG TAB PO PRN (09:05)
[2016-08-21] MEDS ORDERED: BACLOFEN 10 MG TAB PO PRN (09:05)
[2016-08-21] MEDS ORDERED: SODIUM CHLORIDE 0.9% 1,000 ML IV SCH (09:15)
[2016-08-21 13:24] VITALS: BMI 27.3
[2016-08-21] MEDS: MEXILETINE 150 MG CAP PO SCH (16:48)
[2016-08-21] MEDS ORDERED: SPIRONOLACTONE 25 MG TAB PO SCH (17:00)
[2016-08-21] MEDS: HYDROcodone/APAP 7.5-325MG 1 EACH TAB PO PRN (18:36)
[2016-08-21] MEDS ORDERED: ATORVASTATIN 40 MG TAB PO SCH (21:00)
[2016-08-21] MEDS ORDERED: FUROSEMIDE 20 MG TAB PO SCH (21:00)
[2016-08-21] MEDS ORDERED: AMIODARONE 200 MG TAB PO SCH (21:00)
[2016-08-21] MEDS: ALBUTEROL NEBULIZED 2.5 MG/3 ML INHALATION PRN (21:12)
[2016-08-21] MEDS: METOPROLOL SUCCINATE (ER) 50 MG TAB.ER.24H PO SCH (21:38)
[2016-08-22] MEDS: HYDROcodone/APAP 7.5-325MG 1 EACH TAB PO PRN ×3 (00:15→13:53)
[2016-08-22] MEDS: MEXILETINE 150 MG CAP PO SCH ×2 (00:17→08:59)
[2016-08-22] MEDS ORDERED: LEVOTHYROXINE 125 MCG TAB PO SCH ×2 (06:30)
[2016-08-22 07:09] VITALS: RESP 16
[2016-08-22] MEDS ORDERED: PANTOPRAZOLE 40 MG TABLET PO SCH (07:30)
[2016-08-22] MEDS: ALBUTEROL NEBULIZED 2.5 MG/3 ML INHALATION PRN ×2 (08:31→11:57)
[2016-08-22] MEDS: METOPROLOL SUCCINATE (ER) 50 MG TAB.ER.24H PO SCH (08:59)
[2016-08-22] MEDS ORDERED: LIDOCAINE 5% PATCH TOPICAL SCH (09:00)
[2016-08-22] MEDS ORDERED: ENOXAPARIN 40 MG/0.4 ML SYRINGE SQ SCH (09:00)
[2016-08-22] MEDS ORDERED: FUROSEMIDE 80 MG TAB PO SCH (09:00)
--- NOTE | 2016-08-22 09:03 | P.CNOR ---
History of Present Illness - [facility] Consult date: 08/22/16 Requesting physician: Bryson Peng Consult reason: fracture (T12 mild superior endplate compression fracture deformity of uncertain age or etiology), low back pain History of present illness: Patient is a very pleasant 71-year-old female who is well known to our service was seen examined the bedside for further evaluation of her lumbar spine. She previously underwent kyphoplasty at T5 and T6 on 05/02/2016 for surgical body compression fractures. Early in the morning on 08/21/2016 she got up to use the restroom at which time she fell on her buttocks. Since that time she's had some increased low back pain and bilateral hip pain. She was brought to the emergency department by EMS. Imaging was taken at that time which showed no evidence of hip fracture or dislocation bilaterally. There was evidence of a T12 superior endplate compression fracture of indeterminate age. Patient states that at bedside she does have some pain along the midline of the lower lumbar spine. She is not currently complaining of any lower extremity radiculopathy or weakness bilaterally. She does not have much of an appetite but states she has been able to eat without difficulty. She does have a dressing applied over her left forearm for an abrasion she suffered from a previous fall weeks ago. She also has evidence of a superficial wound over the right forearm from her recent fall. Overall her pain has been controlled while here in the hospital. We discussed her T12 fracture detail. She states she does have her TLSO we prescribed previously and this brace would be appropriate if her T12 fracture is acute. She states she would be able to resume wearing this brace. Past Medical History Past Medical History: Atrial Fibrillation, Atrial Flutter, Cancer, Heart Failure , COPD, CVA/TIA, GI Bleed, Hyperlipidemia, Hypertension, Myocardial Infarction ( [place]), Pneumonia, Thyroid Disorder, Vascular Disorder Additional Past Medical History / Comment(s): Acute renal failure due to diuretics, hypokalemia due to diuretics, nonsustained Vtach and moderate mitral regurgitation, CVA in 2011, IA's, ischemic cardiomyopathy, PVD, THYROID CA with surgery, anemia due to lower GI bleed, diverticulitis, sinus problems, vertebral fx (disc number unk), back pain. Fell two weeks ago and claims she has a broken left collarbone Last Myocardial Infarction Date:: 2012 History of Any Multi-Drug Resistant Organisms: None Reported Past Surgical History: Ablation, AICD, Back Surgery, Cardiac Ablation, Heart Catheterization With Stent, Pacemaker, Tubal Ligation Additional Past Surgical History / Comment(s): Cardiac ablation/AV node modification, 09/2012 arterial repair post ablation done at [place], cardioversion, arch/aortagram, total of 3 cardiac stents, THYROIDECTOMY, TROY CARPAL TUNNEL, colonoscopy. Past Anesthesia/Blood Transfusion Reactions: No Reported Reaction Date of Last Stent Placement:: 06-04-08 Type of Cardiac Device: Permanent Pacemaker, AICD Device Placement Date:: 02-04-13 AICD with pacer added 11/02/15 Past Psychological History: Anxiety, Panic Disorder Additional Psychological History / Comment(s): Pt has xanax which helps her anxiety. She has anxiety/panic attack if anything covers her face. Pt resides with her lauraRoxanne. She uses no assistive device. She drives short distances. Smoking Status: Former smoker Past Alcohol Use History: None Reported Additional Past Alcohol Use History / Comment(s): STARTED SMOKING AT AGE 14-1958 , SMOKED 1 PPD, QUIT 2007 Past Drug Use History: None Reported - Past Family History Sister(s) Family Medical History: Cancer Brother(s) Family Medical History: Cancer Father Family Medical History: No Reported History Additional Family Medical History / Comment(s): Father had head trauma due to MVA and 6 months later. Mother Family Medical History: Myocardial Infarction (IA) Additional Family Medical History / Comment(s): Mother of a IA at the age of 75 yrs. Son(s) Family Medical History: Cancer Medications and Allergies Home Medications Medication Instructions Recorded Confirmed Type Albuterol Sulfate [Ventolin HFA] 1 puff INHALATION RT-Q4H PRN 04/16/14 08/21/16 History Ergocalciferol (Vitamin D2) 50,000 unit PO WE 04/16/14 08/21/16 History [Drisdol] Multivitamins, Thera [Multivitamin 1 tab PO DAILY 12/10/14 08/21/16 History (formulary)] Atorvastatin [Lipitor] 40 mg PO HS 08/17/15 08/21/16 History Amiodarone [Cordarone] 200 mg PO HS 09/17/15 08/21/16 History Spironolactone [Aldactone] 25 mg PO DAILY@1700 10/30/15 08/21/16 History Mexiletine [Mexitil] 150 mg PO Q8HR 04/27/16 08/21/16 History Baclofen [Lioresal] 5 mg PO TID PRN 05/02/16 08/21/16 History Metoprolol Succinate (ER) [Toprol 50 mg PO BID 05/02/16 08/21/16 History XL] Levothyroxine Sodium [Synthroid] 125 mcg PO DAILY 08/21/16 08/21/16 History Allergies Allergy/AdvReac Type Severity Reaction Status Date / Time hydromorphone HCl Allergy SHORTNESS Verified 08/21/16 10:28 [From Dilaudid] OF BREATH Iodinated Contrast Media - Allergy Rash/Hives Verified 08/21/16 10:28 Oral and with [Iodinated Contrast Media - nausea and IV Dye] confusion levofloxacin Allergy Rash/Hives Verified 08/21/16 10:28 phenytoin sodium Allergy Nausea & Verified 08/21/16 10:28 [From Dilantin] Vomiting shellfish derived Allergy Swelling/Ra Verified 08/21/16 10:28 sh fentanyl AdvReac Severe Anaphylaxis Verified 08/21/16 10:28 morphine AdvReac Severe Anaphylaxis Verified 08/21/16 10:28 aspirin AdvReac Nausea & Verified 08/21/16 10:28 Vomiting ciprofloxacin [From Cipro] AdvReac counteracts Verified 08/21/16 10:28 w/heart meds. codeine AdvReac Rash/Hives Verified 08/21/16 10:28 Mushroom AdvReac swelling/ra Verified 08/21/16 10:28 sh CONTRAST DYE AdvReac Unknown Uncoded 08/21/16 10:28 Physical Examination Physical exam: Patient is awake, alert, and oriented 3 Vital signs stable Good chest excursion with deep inspiration and expiration Abdomen soft nontender Examination of the thoracic and lumbar spine reveals skin is intact with no abrasions, lacerations, or bruises; no erythema, purulence or signs of infection Some pain with palpation along the midline of the mid lower lumbar spine No pain with palpation of the thoracic spine Evidence of 2 small well-healed incisions on the right side of the mid upper thoracic spine from previous kyphoplasty Dorsiflexion, plantarflexion, and extensor hallucis longus positive sustained bilaterally Lower extremity strength 5/5 bilaterally Patellar reflex 2+ bilaterally No lower extremity hyperreflexia bilaterally Straight leg test negative bilateral lower extremities No signs or symptoms of DVT; no calf pain No pain with internal and external rotation of the hips bilaterally Neurovascularly intact Dressing intact over the left forearm Evidence of a small abrasion over the right forearm Results Pertinent studies: X-ray of the pelvis: No evidence of fracture dislocation or bony lesion; bilateral hip joint space appears to be well-preserved X-rays lumbar spine: T12 mild superior endplate compression fracture deformity of uncertain age or etiology; overall alignment lumbar spine appears be adequately maintained - Labs Labs: H & H 08/21/16 Range/Units 06:53 Hgb 12.7 (11.4-16.0) gm/dL Hct 41.4 (34.0-46.0) % Coagulation 08/21/16 Range/Units 06:53 INR 1.1 (<1.1) Result Diagrams: 08/21/16 06:53 08/21/16 06:53 Assessment and Plan (1) Closed T12 fracture Status: Acute (2) Lumbar pain Status: Acute (3) History of kyphoplasty Status: Acute (4) Status post fall Status: Acute Plan: Assessment: T12 mild superior endplate compression fracture deformity of uncertain age or etiology Low back pain Status post fall History of T5 and T6 kyphoplasty with biopsy performed on 05/02/2016 Plan: 1. Given the patient's recent fall and imaging which shows evidence of a T12 compression fracture deformity, we will plan have the patient resume wearing her previously prescribed TLSO brace. Imaging is unable to determine if this compression fracture deformity is acute or chronic in nature. Patient is experiencing low back pain. At this time, we will plan have her wear her TLSO brace while sitting upright at greater than 45, while ambulating, and while doing activities. She does not have to wear this brace while lying in bed or while bathing. We will plan to have her follow-up in the office in approximately 2 weeks for further evaluation. We'll currently plan to continue with conservative treatment in regards to her lumbar spine. She may participate in activities as tolerated while avoiding excessive activities regards to her lumbar spine. 2. Patient will be continued to be followed by medicine. 3. Continue pain control 4. From an orthopedic spine standpoint, patient is clear for discharge once cleared by medicine 5. Patient may follow-up with Navid Deleon PA-C or Dr. Mann Georges [facility] approximately 2 weeks for further evaluation 6. I discussed this patient detail with Dr. Mann Georges and he agrees with this plan Time with Patient: Greater than 30
[2016-08-22 11:22] VITALS: BP 95/57; TEMP 98.2
[2016-08-22] MEDS ORDERED: MULTIVITAMINS, THERA 1 EACH TAB PO SCH (12:00)
[2016-08-22 12:15] VITALS: PULSE 60
--- NOTE | 2016-08-22 19:40 | HP ---
DATE OF ADMISSION: 08/21/2016 PRESENTING COMPLAINT: Fall. HISTORY OF PRESENTING COMPLAINT: This is a very pleasant 71-year-old patient with rather extensive medical history. Patient especially cardiac history includes flutter/arrhythmias, tachycardia being followed by Dr. Workman. Patient already had electrocardioversion, has had AV junctional modification performed. Other chronic stable medical conditions include congestive heart failure, ejection fraction 30%, COPD, hyperlipidemia, hypertension, hypothyroid, normally runs the blood pressure on the lower side. Patient was walking at home, turned around and fell on her butt. Complained of pain going across both hips and hence she was brought in having some spasms in the left hip. The fall was not related to any dizziness or arrhythmia or chest pain or palpitations. REVIEW OF SYSTEMS: CONSTITUTIONAL: Tired. HEENT: None. RESPIRATORY: Baseline some shortness of breath. CARDIOVASCULAR: None. GASTROINTESTINAL: None. GENITOURINARY: None. MUSCULOSKELETAL: As above. Dermatological: None. HEMATOLOGICAL: None. LYMPHATICS: None. PSYCHIATRY: None. PAST MEDICAL HISTORY: CHF ejection fraction 20%, nonsustained V. tach. Moderate mitral regurgitation, atrial flutter/fibrillation, COPD, hyperlipidemia, hypothyroid, hypertension, arthritis. PAST SURGICAL HISTORY: AICD, thyroidectomy, bilateral carpal tunnel surgery, coronary stents, AV wan ablation. Past psych history of anxiety, panic disorder. SOCIAL HISTORY: Patient smoked for over 50 years a pack a day; stopped in 2007. Lives with family. No alcohol history. FAMILY HISTORY: Cancers. HOME MEDICATIONS: 1. Aldactone 25 mg a day. 2. Prilosec 20 mg breakfast. 3. Multivitamin 1 tablet p.o. daily. 4. Mexiletine 150 mg p.o. q8h. 5. Toprol-XL 150 mg p.o. b.i.d. 6. Synthroid 125 mcg a day. 7. [place] 7.5 1 tablet q6h p.r.n. 8. Lasix 80 mg a day. 9. Vitamin D2, 50,000 units on Monday. 10. Baclofen 5 mg p.o. t.i.d. p.r.n. 11. Lipitor 40 mg q.h.s. 12. Cordarone 200 mg at bedtime. 13. Ventolin HFA 1 puff q.4 p.r.n. 14. Xanax 0.25 p.o. b.i.d. p.r.n. ALLERGIES TO DILAUDID, IV CONTRAST DYE, LEVAQUIN, DILANTIN, SHELLFISH, ( ), MORPHINE, ASPIRIN, CIPRO, CODEINE, MUSHROOM, CONTRAST DYE. PHYSICAL EXAMINATION: Vital signs on presentation: Temperature 98.1, pulse 62, respirations 16, blood pressure 108/73, pulse ox 95% on room air. GENERAL: Average build. Sitting up, not in distress. EYES: Pupils equal, conjunctivae normal. HEENT: Oral cavity normal. NECK: JVD not raised. Mass not palpable. RESPIRATORY: Effort normal. LUNGS: Fair air entry. CARDIOVASCULAR: First and second sounds normal. Minimal edema. ABDOMEN: Soft, nontender. Liver and spleen not palpable. LYMPHATICS: No lymph node palpable in neck or axillae. PSYCHIATRY: Alert and oriented x3. Mood and affect normal. NEUROLOGICAL: Pupils equal. Cranial nerves grossly intact. Power and sensation grossly intact. MUSCULOSKELETAL: Some limited range of motion of the left hip. Patient did get up to the bathroom. Able to walk to the bathroom and come back. INVESTIGATIONS: White count 7.6, hemoglobin 12.7. Potassium 4.3. BUN 33, creatinine 1.52, lumbar spine x-ray shows mild superior ( ) loss of height of T12, uncertain age, pelvic x-ray no fracture. ASSESSMENT: 1. This is a patient who presents with fall on her buttock with a blunt injury, probably to the sacrum and the hip. No evidence of fracture. No evidence of fracture for which orthopedics was consulted with some associated muscle spasms. 2. Chronic congestive heart failure from ischemic cardiomyopathy ejection fraction less than 20%. 3. AICD. 4. Moderate mitral regurgitation, nonrheumatic. 5. History of atrial flutter fibrillation ventricular tachycardia. 6. Coronary artery disease with prior history of stent. 7. Chronic obstructive pulmonary disease in an ex-smoker. 8. Hyperlipidemia. 9. Hypothyroidism. 10. Persistent atrial flutter fibrillation. 11. Peripheral artery disease. PLAN: Home medications resumed. Orthopedics was consulted. Care was discussed with the patient. Patient able to get to the bathroom.
[2016-08-24] MEDS ORDERED: ERGOCALCIFEROL 50,000 UNIT CAP PO SCH (09:00)
--- NOTE | 2016-08-25 11:45 | DS ---
DATE OF ADMISSION: 08/21/2016 DATE OF DISCHARGE: 08/22/2016 FINAL DIAGNOSIS: 1. Fall with blunt injury to the sacrum and the hip. No evidence of fracture. 2. Chronic congestive heart failure from ischemic cardiomyopathy, ejection fraction less than 20%. 3. AICD. 4. Moderate mitral regurgitation, nonrheumatic. 5. History of atrial flutter fibrillation, ventricular tachycardia. 6. Coronary artery disease with prior history of stent. 7. Chronic obstructive pulmonary disease in an ex-smoker. 8. Hyperlipidemia. 9. Hypothyroidism. 10. Persistent atrial flutter fibrillation. 11. Peripheral arterial disease. HOSPITAL COURSE: This patient presented with a fall on her hip and buttock area, no fracture was noted. Doing better. Patient was seen by Dr. Georges from Orthopedics for conservative management. On examination, LUNGS: Fair air entry. CARDIOVASCULAR: Heart sounds irregular. PSYCH: Alert and oriented x3. Care was discussed with the patient. DISCHARGE MEDICATIONS: 1. Ventolin HFA 1 puff q.4 p.r.n. 2. Vitamin D2 fifty thousand units p.o. on Monday. 3. Multivitamin 1 tablet p.o. daily. 4. Xanax 0.25 p.o. daily p.r.n. 5. Prilosec 20 mg with breakfast. 6. Lipitor 40 mg q.h.s. 7. Cordarone 200 mg q.h.s. 8. Aldactone 25 mg a day. 9. Lasix 80 mg a day. 10. Mexiletine 150 mg q.8. 11. Baclofen 5 mg t.i.d. p.r.n. for spasm. 12. [place] 7.5 one q.6 p.r.n. 13. Toprol-XL 50 mg p.o. b.i.d. 14. Synthroid 125 mcg p.o. daily. Followup with Dr. Martínez in 3 days. Follow up with Dr. Navid Deleon on 09/07/2016. TLSO brace for comfort and support as directed per Orthopedics.
== END 2016-08-22 15:26 | disposition home or self-care (01) ==
LOC: EC 06:00 → 3OBS 10:15
PROVIDERS: ADMIT Hospitalist; ATTEND Hospitalist
DX: S39.92XA Unspecified injury of lower back, initial encounter (principal); S79.912A Unspecified injury of left hip, initial encounter; I11.0 Hypertensive heart disease with heart failure; I50.9 Heart failure, unspecified; Z95.810 Presence of automatic (implantable) cardiac defibrillator; I25.5 Ischemic cardiomyopathy; I34.0 Nonrheumatic mitral (valve) insufficiency; I48.1 Persistent atrial fibrillation; I48.92 Unspecified atrial flutter; I47.2 Ventricular tachycardia; I25.10 Atherosclerotic heart disease of native coronary artery without angina pectoris; Z95.5 Presence of coronary angioplasty implant and graft; J44.9 Chronic obstructive pulmonary disease, unspecified; I73.9 Peripheral vascular disease, unspecified; Z88.5 Allergy status to narcotic agent; Z88.1 Allergy status to other antibiotic agents; Z91.041 Radiographic dye allergy status; Z88.6 Allergy status to analgesic agent; Z79.899 Other long term (current) drug therapy; Z91.013 Allergy to seafood; Z91.018 Allergy to other foods; Z86.73 Personal history of transient ischemic attack (TIA), and cerebral infarction without residual deficits; E78.5 Hyperlipidemia, unspecified; I25.2 Old myocardial infarction; Z85.850 Personal history of malignant neoplasm of thyroid; F41.9 Anxiety disorder, unspecified; F41.0 Panic disorder [episodic paroxysmal anxiety]; Z87.891 Personal history of nicotine dependence; Z91.81 History of falling; S22.089A Unspecified fracture of T11-T12 vertebra, initial encounter for closed fracture; W18.30XA Fall on same level, unspecified, initial encounter; Y92.009 Unspecified place in unspecified non-institutional (private) residence as the place of occurrence of the external cause; M54.5 Low back pain; E03.9 Hypothyroidism, unspecified; M19.90 Unspecified osteoarthritis, unspecified site; M62.838 Other muscle spasm
CPT/HCPCS: 99285; 96372; 36415; 94640 ×3; 94760; 93005; 80053; 82550; 82553; 83605; 84484; 85025; 85610; 85730; 81001; 80320; 71010; 72100; 72170; G0378 ×2; J1650

== ENCOUNTER → 2016-10-18 | Outpatient (CLI) | payer MEDICARE | END | disposition home or self-care (01) | LOC: LABWHC1 16:11 | PROVIDERS: ATTEND Psychiatry & Neurology Neurology | DX: G50.0 Trigeminal neuralgia (principal) | CPT/HCPCS: 36415; 80183 ==

== ENCOUNTER 2016-12-06 08:55 | Inpatient (IN) | payer MEDICARE ==
--- NOTE | 2016-12-06 09:24 | ED ---
General Adult HPI - General Chief complaint: Chest Pain Stated complaint: SOB/Chest Pain Time Seen by Provider: 12/06/16 09:00 Source: patient, RN notes reviewed Mode of arrival: wheelchair Limitations: no limitations - History of Present Illness Initial comments: This is a 71-year-old female presents emergency Department via EMS. EMS told us that they picked her up for chest pain difficult breathing. Patient currently is not complaining of any chest pain or difficulty breathing and she is alert and only oriented to person. We have no family in the room in no acute given is any further history. Patient denies any headache patient denies numbness weakness. Patient denies chest pain difficulty breathing shortness breath per patient denies abdominal pain patient denies nausea vomiting diarrhea. Patient denies any problems whatsoever. - Related Data Home Medications Medication Instructions Recorded Confirmed Albuterol Sulfate [Ventolin HFA] 1 puff INHALATION RT-Q4H PRN 04/16/14 12/06/16 Ergocalciferol (Vitamin D2) 50,000 unit PO WE 04/16/14 12/06/16 [Drisdol] Multivitamins, Thera [Multivitamin 1 tab PO DAILY 12/10/14 12/06/16 (formulary)] Atorvastatin [Lipitor] 40 mg PO HS 08/17/15 12/06/16 Amiodarone [Cordarone] 200 mg PO HS 09/17/15 12/06/16 Spironolactone [Aldactone] 25 mg PO DAILY@1700 10/30/15 12/06/16 Mexiletine [Mexitil] 150 mg PO Q8HR 04/27/16 12/06/16 Baclofen [Lioresal] 10 mg PO TID PRN 05/02/16 12/06/16 Metoprolol Succinate (ER) [Toprol 50 mg PO DAILY 05/02/16 12/06/16 XL] Levothyroxine Sodium [Synthroid] 125 mcg PO SUFRSA 08/21/16 12/06/16 Albuterol Nebulized [Ventolin 2.5 mg INHALATION RT-QID 12/06/16 12/06/16 Nebulized] Alendronate Sodium [Fosamax] 70 mg PO Q7D 12/06/16 12/06/16 Furosemide [Lasix] 40 mg PO DAILY@1400 12/06/16 12/06/16 Furosemide [Lasix] 80 mg PO DAILY@0800 12/06/16 12/06/16 Gabapentin [Neurontin] 300 mg PO QID 12/06/16 12/06/16 HYDROcodone/APAP 7.5-325MG [[place] 1 tab PO Q12H PRN 12/06/16 12/06/16 7.5-325] OXcarbazepine [Trileptal] 150 mg PO TID 12/06/16 12/06/16 Previous Rx's Medication Instructions Recorded ALPRAZolam [Xanax] 0.25 mg PO BID PRN #30 tab 01/07/15 Omeprazole [PriLOSEC] 20 mg PO AC-BRKFST #30 cap 04/25/15 Allergies Allergy/AdvReac Type Severity Reaction Status Date / Time hydromorphone HCl Allergy SHORTNESS Verified 12/06/16 09:52 [From Dilaudid] OF BREATH Iodinated Contrast- Oral and Allergy Rash/Hives Verified 12/06/16 09:52 IV Dye with [Iodinated Contrast Media - nausea and IV Dye] confusion levofloxacin Allergy Rash/Hives Verified 12/06/16 09:52 phenytoin sodium Allergy Nausea & Verified 12/06/16 09:52 [From Dilantin] Vomiting shellfish derived Allergy Swelling/Ra Verified 12/06/16 09:52 sh fentanyl AdvReac Severe Anaphylaxis Verified 12/06/16 09:52 morphine AdvReac Severe Anaphylaxis Verified 12/06/16 09:52 aspirin AdvReac Nausea & Verified 12/06/16 09:52 Vomiting ciprofloxacin [From Cipro] AdvReac counteracts Verified 12/06/16 09:52 w/heart meds. codeine AdvReac Rash/Hives Verified 12/06/16 09:52 Mushroom AdvReac swelling/ra Verified 12/06/16 09:52 sh CONTRAST DYE AdvReac Unknown Uncoded 08/21/16 10:28 Review of Systems ROS Statement: Those systems with pertinent positive or pertinent negative responses have been documented in the HPI. ROS Other: All systems not noted in ROS Statement are negative. Past Medical History Past Medical History: Atrial Fibrillation, Atrial Flutter, Cancer, Heart Failure , COPD, CVA/TIA, GI Bleed, Hyperlipidemia, Hypertension, Myocardial Infarction ( [place]), Pneumonia, Thyroid Disorder, Vascular Disorder Additional Past Medical History / Comment(s): Acute renal failure due to diuretics, hypokalemia due to diuretics, nonsustained Vtach and moderate mitral regurgitation, CVA in 2012, SC's, ischemic cardiomyopathy, PVD, THYROID CA with surgery, anemia due to lower GI bleed, diverticulitis, sinus problems, vertebral fx (disc number unk), back pain. Last Myocardial Infarction Date:: 2012 History of Any Multi-Drug Resistant Organisms: None Reported Past Surgical History: Ablation, AICD, Back Surgery, Cardiac Ablation, Heart Catheterization With Stent, Pacemaker, Tubal Ligation Additional Past Surgical History / Comment(s): Cardiac ablation/AV node modification, 09/2012 arterial repair post ablation done at [facility], cardioversion, arch/aortagram, total of 3 cardiac stents, THYROIDECTOMY, TROY CARPAL TUNNEL, colonoscopy. Past Anesthesia/Blood Transfusion Reactions: No Reported Reaction Date of Last Stent Placement:: 06-04-08 Type of Cardiac Device: Permanent Pacemaker, AICD Device Placement Date:: 02-04-13 AICD with pacer added 11/02/15 Past Psychological History: Anxiety, Panic Disorder Smoking Status: Former smoker Past Alcohol Use History: None Reported Past Drug Use History: None Reported - Past Family History Sister(s) Family Medical History: Cancer Brother(s) Family Medical History: Cancer Father Family Medical History: No Reported History Additional Family Medical History / Comment(s): Father had head trauma due to MVA and 6 months later. Mother Family Medical History: Myocardial Infarction (SC) Additional Family Medical History / Comment(s): Mother of a SC at the age of 75 yrs. Son(s) Family Medical History: Cancer General Exam - General Exam Comments Initial Comments: GENERAL: Patient is well-developed and well-nourished. Patient is nontoxic and well- hydrated and is in no acute distress. ENT: Neck is soft and supple. No significant lymphadenopathy is noted. Oropharynx is clear. Moist mucous membranes. Neck has full range of motion without eliciting any pain. EYES: The sclera were anicteric and conjunctiva were pink and moist. Extraocular movements were intact and pupils were equal round and reactive to light. Eyelids were unremarkable. PULMONARY: Patient has bilateral crackles in the bases CARDIOVASCULAR: There is a regular rate and rhythm without any murmurs gallops or rubs. Femoral pulses are equal bilaterally ABDOMEN: Soft and nontender with normal bowel sounds. No palpable organomegaly was noted. There is no palpable pulsatile mass. SKIN: Skin is clear with no lesions or rashes and otherwise unremarkable. NEUROLOGIC: Patient is alert and oriented 1. Cranial nerves II through XII are grossly intact. Motor and sensory are also intact. Normal speech, volume and content. Symmetrical smile. MUSCULOSKELETAL: Normal extremities with adequate strength and full range of motion. No lower extremity swelling or edema. No calf tenderness. LYMPHATICS: No significant lymphadenopathy is noted PSYCHIATRIC: Normal psychiatric evaluation. Limitations: no limitations Course Vital Signs 12/06/16 12/06/16 08:58 11:00 Temperature 97.9 F Pulse Rate 80 88 Respiratory 20 20 Rate Blood Pressure 148/91 142/84 O2 Sat by Pulse 98 97 Oximetry Medical Decision Making - Medical Decision Making EKG shows ventricular paced rhythm at 69 bpm QRS is 132 QT interval 668 QTC is 715. Patient also has some PVCs. Patient's daughter arrived and stated that the mother was significantly altered mentally. She normally can converse and answer questions quickly but today she is unable to. Abdominal CT shows no acute abnormality. CT of the brain shows no acute abnormality. Patient was still moaning like she was in pain however she denied being any pain or any distress and in fact stated she felt fine. Daughter states this is not how she normally acts and believes the patient still some pain - Lab Data Result diagrams: 12/06/16 09:35 12/06/16 09:35 Lab Results 12/06/16 12/06/16 12/06/16 Range/Units 09:20 09:35 09:35 WBC 11.1 H (3.8-10.6) k/uL RBC 5.14 (3.80-5.40) m/uL Hgb 13.0 (11.4-16.0) gm/dL Hct 42.6 (34.0-46.0) % MCV 82.7 (80.0-100.0) fL MCH 25.2 (25.0-35.0) pg MCHC 30.5 L (31.0-37.0) g/dL RDW 16.0 H (11.5-15.5) % Plt Count 221 (150-450) k/uL Neutrophils % 84 % Lymphocytes % 8 % Monocytes % 6 % Eosinophils % 0 % Basophils % 0 % Neutrophils # 9.3 H (1.3-7.7) k/uL Lymphocytes # 0.9 L (1.0-4.8) k/uL Monocytes # 0.6 (0-1.0) k/uL Eosinophils # 0.0 (0-0.7) k/uL Basophils # 0.0 (0-0.2) k/uL Hypochromasia Marked Anisocytosis Slight PT (9.0-12.0) sec INR (<1.2) APTT (22.0-30.0) sec Sodium (137-145) mmol/L Potassium (3.5-5.1) mmol/L Chloride (98-107) mmol/L Carbon Dioxide (22-30) mmol/L Anion Gap mmol/L BUN (7-17) mg/dL Creatinine (0.52-1.04) mg/dL Est GFR (MDRD) Af Amer (>60 ml/min/1.73 sqM) Est GFR (MDRD) Non-Af (>60 ml/min/1.73 sqM) Glucose (74-99) mg/dL Calcium (8.4-10.2) mg/dL Magnesium (1.6-2.3) mg/dL Total Bilirubin (0.2-1.3) mg/dL AST (14-36) U/L ALT (9-52) U/L Alkaline Phosphatase (38-126) U/L Total Creatine Kinase 73 (30-135) U/L CK-MB (CK-2) 2.7 H* (0.0-2.4) ng/mL CK-MB (CK-2) Rel Index 3.7 Troponin I 0.035 H* (0.000-0.034) ng/mL Total Protein (6.3-8.2) g/dL Albumin (3.5-5.0) g/dL Urine Color Yellow Urine Appearance Clear (Clear) Urine pH 6.5 (5.0-8.0) Ur Specific [place] 1.018 (1.001-1.035) Urine Protein Trace H (Negative) Urine Glucose (UA) Negative (Negative) Urine Ketones 1+ H (Negative) Urine Blood Negative (Negative) Urine Nitrite Negative (Negative) Urine Bilirubin Negative (Negative) Urine Urobilinogen 2.0 (<2.0) mg/dL Ur Leukocyte Esterase Negative (Negative) 12/06/16 12/06/16 Range/Units 09:35 09:35 WBC (3.8-10.6) k/uL RBC (3.80-5.40) m/uL Hgb (11.4-16.0) gm/dL Hct (34.0-46.0) % MCV (80.0-100.0) fL MCH (25.0-35.0) pg MCHC (31.0-37.0) g/dL RDW (11.5-15.5) % Plt Count (150-450) k/uL Neutrophils % % Lymphocytes % % Monocytes % % Eosinophils % % Basophils % % Neutrophils # (1.3-7.7) k/uL Lymphocytes # (1.0-4.8) k/uL Monocytes # (0-1.0) k/uL Eosinophils # (0-0.7) k/uL Basophils # (0-0.2) k/uL Hypochromasia Anisocytosis PT 10.8 (9.0-12.0) sec INR 1.1 (<1.2) APTT 23.8 (22.0-30.0) sec Sodium 143 (137-145) mmol/L Potassium 4.6 (3.5-5.1) mmol/L Chloride 108 H (98-107) mmol/L Carbon Dioxide 25 (22-30) mmol/L Anion Gap 10 mmol/L BUN 15 (7-17) mg/dL Creatinine 0.99 (0.52-1.04) mg/dL Est GFR (MDRD) Af Amer >60 (>60 ml/min/1.73 sqM) Est GFR (MDRD) Non-Af 55 (>60 ml/min/1.73 sqM) Glucose 100 H (74-99) mg/dL Calcium 9.5 (8.4-10.2) mg/dL Magnesium 2.1 (1.6-2.3) mg/dL Total Bilirubin 1.0 (0.2-1.3) mg/dL AST 23 (14-36) U/L ALT 27 (9-52) U/L Alkaline Phosphatase 123 (38-126) U/L Total Creatine Kinase (30-135) U/L CK-MB (CK-2) (0.0-2.4) ng/mL CK-MB (CK-2) Rel Index Troponin I (0.000-0.034) ng/mL Total Protein 7.0 (6.3-8.2) g/dL Albumin 4.2 (3.5-5.0) g/dL Urine Color Urine Appearance (Clear) Urine pH (5.0-8.0) Ur Specific [place] (1.001-1.035) Urine Protein (Negative) Urine Glucose (UA) (Negative) Urine Ketones (Negative) Urine Blood (Negative) Urine Nitrite (Negative) Urine Bilirubin (Negative) Urine Urobilinogen (<2.0) mg/dL Ur Leukocyte Esterase (Negative) Disposition Clinical Impression: Altered mental status Disposition: ADMITTED IP TO THIS HOSP Referrals: Roberto Martínez DO [Primary Care Provider] - 1-2 days Time of Disposition: 12:48
[2016-12-06 09:53] LABS: Appearance,Urine Clear (Clear); Bilirubin,Urine Negative (Negative); Glucose,Urine (UA) Negative (Negative); Ketones,Urine 1+ (Negative); Leukocyte Esterase,Urine Negative (Negative); Nitrite,Urine Negative (Negative); PH, Urine 6.5 (5.0-8.0); Protein,Urine Trace (Negative); Specific Gravity,Urine 1.018 (1.001-1.035); UA Billing (MACRO vs. MICRO) CHEM
[2016-12-06 10:24] LABS: Anisocytosis Slight; Basophils % (A) 0 %; CH 24.4; CHCM 29.6; Eosinophils % (A) 0 %; HCT 42.6 % (34.0-46.0); Hypochromasia Marked; Luc # (Auto) 0.16; Luc % (Auto) 2; Lymphocytes # (A) 0.9 k/uL (1.0-4.8); Lymphocytes % (A) 8 %; MCH 25.2 pg (25.0-35.0); MCHC 30.5 g/dL (31.0-37.0); MCV 82.7 fL (80.0-100.0); Mean Platelet Volume 7.5; Monocytes # (A) 0.6 k/uL (0-1.0); Monocytes % (A) 6 %; Neutrophils # (A) 9.3 k/uL (1.3-7.7); Neutrophils % (A) 84 %; RBC 5.14 m/uL (3.80-5.40); WBC 11.1 k/uL (3.8-10.6); WBC (Perox) 11.79
[2016-12-06 10:30] LABS: ALT 27 U/L (9-52); AST 23 U/L (14-36); Alkaline Phosphatase 123 U/L (38-126); Anion Gap 10 mmol/L; Blood Urea Nitrogen 15 mg/dL (7-17); Calcium 9.5 mg/dL (8.4-10.2); Carbon Dioxide 25 mmol/L (22-30); Chloride 108 mmol/L (98-107); Glucose 100 mg/dL (74-99); Magnesium 2.1 mg/dL (1.6-2.3); Non-African American GFR(MDRD) 55 (>60 ml/min/1.73 sqM); Potassium 4.6 mmol/L (3.5-5.1); Sodium 143 mmol/L (137-145)
[2016-12-06 10:57] LABS: INR 1.1 (<1.2); Partial Thromboplastin Time 23.8 sec (22.0-30.0); Prothrombin Time 10.8 sec (9.0-12.0)
[2016-12-06 11:04] LABS: Creatine Kinase MB 2.7 ng/mL (0.0-2.4)
[2016-12-06 11:05] LABS: Troponin I 0.035 ng/mL (0.000-0.034)
--- NOTE | 2016-12-06 11:05 | CT ---
EXAMINATION TYPE: CT abdomen pelvis wo con DATE OF EXAM: 12/06/2016 COMPARISON: NONE INDICATION: Abdominal pain DLP: 541 mGycm, Automated exposure control for dose reduction was used. CONTRAST: 0 mL of Omnipaque 300. Study performed without Oral Contrast TECHNIQUE: Axial images were obtained from above the diaphragm to the pubic rami in the axial plane a t 5 mm thick sections. Reconstructed images are reviewed on the computer in the coronal plane. FINDINGS: Limited CT sections are obtained the lung bases. Some minimal infiltrate may be in the posterior med ial right lung base. Consider atelectasis. Minimal infiltrate may also be within the dependent left l joseph base. Cardiomegaly is present.. CT ABDOMEN: Liver: Normal Spleen: Normal Pancreas: Normal Adrenal glands: The adrenal glands are normal. Gallbladder: Sludge within the gallbladder is not excluded. Expected fluid signal somewhat greater th an expected within the gallbladder. Kidneys: No masses are evident. No hydronephrosis is present. No cysts are present. Coronary arter y calcification is noted. Aorta: Vascular calcification is within the aorta. There may be some fusiform prominence of the dist al abdominal aorta measuring 2.7 cm. Inferior vena cava: Normal. CT PELVIS: Loops of bowel within the abdomen and pelvis are normal. Multiple diverticuli are through the red undant sigmoid colon. Appendix: Normal as visualized. Urinary bladder: Normal. Genitourinary structures: Uterus is unremarkable. Adnexal regions are clear. Osseous structures: No suspicious lytic or sclerotic lesions. Facet changes are within the lower lumb ar spine IMPRESSIONS: 1. Mild bibasilar atelectasis. 2. Suspected sludge within the gallbladder. 3. Diverticulosis without acute diverticulitis sigmoid colon
--- NOTE | 2016-12-06 12:18 | XR ---
EXAMINATION TYPE: XR chest 2V DATE OF EXAM: 12/06/2016 COMPARISON: 08/21/2016 HISTORY: Shortness of breath TECHNIQUE: Frontal and lateral views of the chest are obtained. FINDINGS: Scattered senescent parenchymal changes noted. Hyperinflation compatible with COPD. Patchy density right lower lobe may reflect developing infiltrate. Stable cardiomegaly. Pulmonary venous engorgement without overt failure. Mediastinal structures are stable and grossly unremarkable. No evidence for hilar prominence. Degenerative changes dorsal spine. IMPRESSION: 1. Patchy density right lower lobe may reflect developing infiltrate. 2. Stable cardiomegaly. Pulmonary venous engorgement without overt failure.
[2016-12-06] MEDS ORDERED: LORazepam 2 MG/ML INJ IV STA (12:55)
[2016-12-06] MEDS ORDERED: SODIUM CHLORIDE 0.9% 1,000 ML IV ONE (13:54)
[2016-12-06] MEDS ORDERED: IPRATROPIUM-ALBUTEROL 3 ML NEB INHALATION PRN ×2 (15:51→20:35)
[2016-12-06] MEDS ORDERED: NON-FORMULARY DRUG (Alendronate Sodium [Fosamax] 70 MG) PO SCH (16:00)
[2016-12-06] MEDS: OXcarbazepine 150 MG TAB PO SCH ×2 (16:37→21:47)
[2016-12-06] MEDS: SPIRONOLACTONE 25 MG TAB PO SCH (16:37)
[2016-12-06] MEDS ORDERED: BACLOFEN 10 MG TAB PO PRN (20:13)
[2016-12-06] MEDS: IPRATROPIUM-ALBUTEROL 3 ML NEB INHALATION SCH ×2 (20:22→20:23)
[2016-12-06] MEDS ORDERED: RX INFO: IV CONTRAST WAS GIVEN 1 EACH MISC MISCELLANE PRN (20:40)
[2016-12-06] MEDS ORDERED: FAMOTIDINE 20 MG/2 ML VIAL IV STA (20:43)
[2016-12-06] MEDS ORDERED: diphenhydrAMINE 50 MG/ML 1 ML VIAL IVP STA (20:43)
[2016-12-06] MEDS ORDERED: methylPREDNISolone SOD SUCCI 125 MG/2 ML VIAL IV STA (20:43)
[2016-12-06] MEDS: HYDROcodone/APAP 7.5-325MG 1 EACH TAB PO PRN (20:45)
[2016-12-06] MEDS: ATORVASTATIN 40 MG TAB PO SCH (21:47)
[2016-12-06] MEDS: AMIODARONE 200 MG TAB PO SCH (21:47)
--- NOTE | 2016-12-06 22:09 | P.HPIM ---
<Estrella Aguilar A - Last Filed: 12/06/16 21:31> History of Present Illness H&P Date: 12/06/16 Chief Complaint: Acute mental status changes, pain 71-year-old female patient of Dr. Roberto Martínez with chronic stable medical conditions that include atrial fibrillation/flutter, congestive heart failure, COPD, GI bleed, hyperlipidemia, hypertension, renal failure who presented to the emergency department via EMS with chest pain and difficulty breathing. On arrival to the floor, it was very difficult to determine what the problem was, patient continually moaned in pain, did not answer questions initially, was finally able to get the patient to tell that she had fallen at home and she was having back pain. Patient does have a component of confusion, unable to answer some basic questions about person place and time likely due to her intractable pain. Daughters at the bedside and is attempting to help answer questions. Daughter states patient has been in this condition since 6:00 this morning. Review of Systems Unable to perform review of systems due to patient's current condition. GEN.: [None] EYES: [None] HEENT: [None] NECK: [None] RESPIRATORY: [None] CARDIOVASCULAR: [None] GASTROINTESTINAL: [None] GENITOURINARY: [None] MUSCULOSKELETAL: [None] LYMPHATICS: [None] HEMATOLOGICAL: [None] PSYCHIATRY: [None] NEUROLOGICAL: [None] Past Medical History Past Medical History: Atrial Fibrillation, Atrial Flutter, Cancer, Heart Failure , COPD, CVA/TIA, GERD/Reflux, GI Bleed, Hyperlipidemia, Hypertension, Myocardial Infarction (NV), Pneumonia, Thyroid Disorder, Vascular Disorder Additional Past Medical History / Comment(s): Acute renal failure due to diuretics, hypokalemia due to diuretics, nonsustained Vtach and moderate mitral regurgitation, CVA in 2011, NV's, ischemic cardiomyopathy, PVD, THYROID CA with surgery, anemia due to lower GI bleed, diverticulitis, sinus problems, vertebral fx (disc number unk), back pain. Last Myocardial Infarction Date:: 2012 History of Any Multi-Drug Resistant Organisms: None Reported Past Surgical History: Ablation, AICD, Back Surgery, Cardiac Ablation, Heart Catheterization With Stent, Pacemaker, Tubal Ligation Additional Past Surgical History / Comment(s): Cardiac ablation/AV node modification, 09/2012 arterial repair post ablation done at [facility], cardioversion, arch/aortagram, total of 3 cardiac stents, THYROIDECTOMY, TROY CARPAL TUNNEL, colonoscopy. Past Anesthesia/Blood Transfusion Reactions: No Reported Reaction Date of Last Stent Placement:: 06-04-08 Type of Cardiac Device: Permanent Pacemaker, AICD Device Placement Date:: 02-04-13 AICD with pacer added 11/02/15 Smoking Status: Former smoker - Past Family History Sister(s) Family Medical History: Cancer Brother(s) Family Medical History: Cancer Father Family Medical History: No Reported History Additional Family Medical History / Comment(s): Father had head trauma due to MVA and 6 months later. Mother Family Medical History: Myocardial Infarction (NV) Additional Family Medical History / Comment(s): Mother of a NV at the age of 75 yrs. Son(s) Family Medical History: Cancer Medications and Allergies Home Medications Medication Instructions Recorded Confirmed Type Albuterol Sulfate [Ventolin HFA] 1 puff INHALATION RT-Q4H PRN 04/16/14 12/06/16 History Ergocalciferol (Vitamin D2) 50,000 unit PO WE 04/16/14 12/06/16 History [Drisdol] Multivitamins, Thera [Multivitamin 1 tab PO DAILY 12/10/14 12/06/16 History (formulary)] ALPRAZolam [Xanax] 0.25 mg PO BID PRN #30 tab 01/07/15 12/06/16 Rx Omeprazole [PriLOSEC] 20 mg PO AC-BRKFST #30 cap 04/25/15 12/06/16 Rx Atorvastatin [Lipitor] 40 mg PO HS 08/17/15 12/06/16 History Amiodarone [Cordarone] 200 mg PO HS 09/17/15 12/06/16 History Spironolactone [Aldactone] 25 mg PO DAILY@1700 10/30/15 12/06/16 History Mexiletine [Mexitil] 150 mg PO Q8HR 04/27/16 12/06/16 History Baclofen [Lioresal] 10 mg PO TID PRN 05/02/16 12/06/16 History Metoprolol Succinate (ER) [Toprol 50 mg PO DAILY 05/02/16 12/06/16 History XL] Levothyroxine Sodium [Synthroid] 125 mcg PO SUFRSA 08/21/16 12/06/16 History Albuterol Nebulized [Ventolin 2.5 mg INHALATION RT-QID 12/06/16 12/06/16 History Nebulized] Alendronate Sodium [Fosamax] 70 mg PO Q7D 12/06/16 12/06/16 History Furosemide [Lasix] 40 mg PO DAILY@1400 12/06/16 12/06/16 History Furosemide [Lasix] 80 mg PO DAILY@0800 12/06/16 12/06/16 History Gabapentin [Neurontin] 300 mg PO QID 12/06/16 12/06/16 History HYDROcodone/APAP 7.5-325MG [[place] 1 tab PO Q12H PRN 12/06/16 12/06/16 History 7.5-325] OXcarbazepine [Trileptal] 150 mg PO TID 12/06/16 12/06/16 History Allergies Allergy/AdvReac Type Severity Reaction Status Date / Time hydromorphone HCl Allergy SHORTNESS Verified 12/06/16 09:52 [From Dilaudid] OF BREATH Iodinated Contrast- Oral and Allergy Rash/Hives Verified 12/06/16 09:52 IV Dye with [Iodinated Contrast Media - nausea and IV Dye] confusion levofloxacin Allergy Rash/Hives Verified 12/06/16 09:52 phenytoin sodium Allergy Nausea & Verified 12/06/16 09:52 [From Dilantin] Vomiting shellfish derived Allergy Swelling/Ra Verified 12/06/16 09:52 sh fentanyl AdvReac Severe Anaphylaxis Verified 12/06/16 09:52 morphine AdvReac Severe Anaphylaxis Verified 12/06/16 09:52 aspirin AdvReac Nausea & Verified 12/06/16 09:52 Vomiting ciprofloxacin [From Cipro] AdvReac counteracts Verified 12/06/16 09:52 w/heart meds. codeine AdvReac Rash/Hives Verified 12/06/16 09:52 Mushroom AdvReac swelling/ra Verified 12/06/16 09:52 sh CONTRAST DYE AdvReac Unknown Uncoded 08/21/16 10:28 Physical Exam Vitals: Vital Signs Temp Pulse Pulse Resp BP BP Pulse Ox 12/06/16 20:31 77 09/19/17 20:23 76 12/06/16 16:00 97.6 F 67 18 139/89 95 12/06/16 15:00 97.8 F 79 20 124/83 97 12/06/16 14:00 60 20 140/82 99 12/06/16 13:35 68 20 143/70 98 12/06/16 12:55 74 20 132/86 97 12/06/16 11:00 88 20 142/84 97 12/06/16 08:58 97.9 F 80 20 148/91 98 Intake and Output 12/06/16 12/06/16 12/06/16 06:59 14:59 22:59 Other: Voiding Method Diaper # Voids 1 Weight 76.9 kg Patient Weight 12/07/16 06:59 Weight 76.9 kg VITAL SIGNS: [Temperature 97.6, pulse 67, respirations 18, blood pressure 139/89 , oxygen saturation 95% on 4 L.. BMI 28.2 kg/m GENERAL: [Average built, sitting up, uncomfortable]. EYES: [Pupils equal. Conjunctiva jj]l. HEENT: [External appearance of nose and ears normal, oral cavity grossly normal] . NECK: [JVD not raised; masses not palpable]. HEART: [First and second heart sounds are normal; no edema]. LUNGS:[ Respiratory rate normal; clear to auscultation]. ABDOMEN: [Soft, nontender, liver spleen not palpable, no masses palpable]. LYMPHATICS: [No lymph nodes palpable in the axilla and neck]. PSYCH: [Alert and oriented x3; mood and affect jj]l. NEUROLOGICAL: [Cranial nerves grossly intact; no facial asymmetry, power and sensation grossly intact, straight leg raises 10 bilaterally, lifting her legs causes her to have sacral and lumbar back pain, tenderness to palpation to the lumbar and sacral spine.]. Results CBC & Chem 7: 12/06/16 09:35 12/06/16 09:35 Labs: Abnormal Lab Results - Last 24 Hours (Table) 12/06/16 12/06/16 12/06/16 Range/Units 09:20 09:35 09:35 WBC 11.1 H (3.8-10.6) k/uL MCHC 30.5 L (31.0-37.0) g/dL RDW 16.0 H (11.5-15.5) % Neutrophils # 9.3 H (1.3-7.7) k/uL Lymphocytes # 0.9 L (1.0-4.8) k/uL D-Dimer (<0.60) mg/L FEU Chloride (98-107) mmol/L Glucose (74-99) mg/dL CK-MB (CK-2) 2.7 H* (0.0-2.4) ng/mL Troponin I 0.035 H* (0.000-0.034) ng/mL Urine Protein Trace H (Negative) Urine Ketones 1+ H (Negative) 12/06/16 12/06/16 Range/Units 09:35 17:08 WBC (3.8-10.6) k/uL MCHC (31.0-37.0) g/dL RDW (11.5-15.5) % Neutrophils # (1.3-7.7) k/uL Lymphocytes # (1.0-4.8) k/uL D-Dimer 2.44 H (<0.60) mg/L FEU Chloride 108 H (98-107) mmol/L Glucose 100 H (74-99) mg/dL CK-MB (CK-2) (0.0-2.4) ng/mL Troponin I (0.000-0.034) ng/mL Urine Protein (Negative) Urine Ketones (Negative) Microbiology - Last 24 Hours (Table) 12/06/16 09:20 Urine Culture - Preliminary Urine,Catheterized Assessment and Plan Plan: ASSESSMENT: -Fall from standing, mechanism unknown, patient unable to answer questions regarding the fall. -Acute confusion, multifactorial, could be medications, secondary to intractable pain -Chronic congestive heart failure from ischemic cardiomyopathy ejection fraction less than 20%, stable -AICD -Moderate mitral regurgitation, nonrheumatic. -History of atrial flutter, fibrillation, ventricular tachycardia. -Coronary artery disease with prior history of stent. -Chronic obstructive pulmonary disease in an ex-smoker. -Hyperlipidemia -Hypothyroidism. -Peripheral artery disease PLAN: Home medications resumed, due to the unclear nature of the problem, additional imaging of the spine ordered, once these are completed if necessary we'll consult orthopedics, cardiology will be consulted given her extensive cardiac history, as will pulmonology. [employer] Statement: Patient was seen and examined by nurse practitioner Estrella Aguilar in all elements of the case discussed with attending Dr. Mccormick <Darron Mccormick - Last Filed: 12/06/16 22:17> Physical Exam Vitals: Vital Signs Temp Pulse Pulse Resp BP BP Pulse Ox 12/06/16 20:31 77 12/06/16 20:23 76 12/06/16 16:00 97.6 F 67 18 139/89 95 12/06/16 15:00 97.8 F 79 20 124/83 97 12/06/16 14:00 60 20 140/82 99 12/06/16 13:35 68 20 143/70 98 12/06/16 12:55 74 20 132/86 97 12/06/16 11:00 88 20 142/84 97 12/06/16 08:58 97.9 F 80 20 148/91 98 Intake and Output 12/06/16 12/06/16 12/06/16 06:59 14:59 22:59 Other: Voiding Method Diaper # Voids 1 Weight 76.9 kg Patient Weight 12/07/16 06:59 Weight 76.9 kg Results CBC & Chem 7: 12/06/16 09:35 12/06/16 09:35 Labs: Abnormal Lab Results - Last 24 Hours (Table) 12/06/16 12/06/16 12/06/16 Range/Units 09:20 09:35 09:35 WBC 11.1 H (3.8-10.6) k/uL MCHC 30.5 L (31.0-37.0) g/dL RDW 16.0 H (11.5-15.5) % Neutrophils # 9.3 H (1.3-7.7) k/uL Lymphocytes # 0.9 L (1.0-4.8) k/uL D-Dimer (<0.60) mg/L FEU Chloride (98-107) mmol/L Glucose (74-99) mg/dL CK-MB (CK-2) 2.7 H* (0.0-2.4) ng/mL Troponin I 0.035 H* (0.000-0.034) ng/mL Urine Protein Trace H (Negative) Urine Ketones 1+ H (Negative) 12/06/16 12/06/16 Range/Units 09:35 17:08 WBC (3.8-10.6) k/uL MCHC (31.0-37.0) g/dL RDW (11.5-15.5) % Neutrophils # (1.3-7.7) k/uL Lymphocytes # (1.0-4.8) k/uL D-Dimer 2.44 H (<0.60) mg/L FEU Chloride 108 H (98-107) mmol/L Glucose 100 H (74-99) mg/dL CK-MB (CK-2) (0.0-2.4) ng/mL Troponin I (0.000-0.034) ng/mL Urine Protein (Negative) Urine Ketones (Negative) Microbiology - Last 24 Hours (Table) 12/06/16 09:20 Urine Culture - Preliminary Urine,Catheterized Assessment and Plan Plan: Attending note. Date of service-12/06/2016 This patient was seen and examined by me . Discussed the patient with my nurse practitioner Ms. Aguilar. Patient is sitting at a computer table and apparently took a fall. Patient does have chronic pain in the head and from herpes zoster. Has been moaning and groaning since that time. Not able to give much of a history. On examination: Lungs-decreased breath sounds, cardiovascular heart is irregular Investigations: White count 11.1 potassium 4.6 troponin 0.035 Assessment and plan: -Fall with possible blunt injury to the back and shoulder -Chronic congestive heart failure from ischemic cardiomyopathy EF less than 20% with AICD in place -Moderate mitral regurgitation nondramatic -History of atrial flutter fibrillation mental tachycardia -Coronary artery disease or prior history of stent -COPD in an ex-smoker -Hyperlipidemia -Hypothyroid thyroidism -Peripheral artery disease -Colonic diverticulosis Plan: Care was discussed with daughter the bedside. We'll use a heating pad for pain control. Home medications were resumed. We will gently hydrate the patient will do a x-ray of the lumbar and thoracic spine
--- NOTE | 2016-12-06 23:10 | CT ---
EXAM: CT Angiography Chest With Intravenous Contrast CLINICAL HISTORY: Reason: pain, fall TECHNIQUE: Axial computed tomographic angiography images of the chest with intravenous contrast using pulmonary embolism protocol. CTDI is 9.8 mGy and DLP is 419.9 mGy-cm This CT exam was performed using one or more of the following dose reduction techniques: automated exposure control, adjustment of the mA and/or kV according to patient size, and/or use of iterative reconstruction technique. MIP reconstructed images were created and reviewed. COMPARISON: 02/17/16 FINDINGS: No pulmonary embolism. Aortic atherosclerosis without aneurysm. Lumen is not opacified. Cardiomegaly with extensive coronary atherosclerosis. 3-lead pacer device in a left subclavian approach again noted. Subsegmental atelectasis and upper lobe predominant emphysema again noted. No acute infectious infiltrate or pulmonary edema. No clear parenchymal contusion. T6 and T7 compression fractures treated with kyphoplasty. L1 fracture is new in the interval, potentially acute or subacute. 40% loss of anterior height. 5 mm of bony retropulsion. Chronic rib and clavicle deformities. IMPRESSION: L1 compression fracture may be acute or subacute. 5 mm of bony retropulsion. No pneumothorax or hemothorax. No PE. Cardiomegaly and CAD.
[2016-12-06] MEDS: SODIUM CHLORIDE 0.9% 1,000 ML IV SCH (23:58)
[2016-12-06] MEDS: GABAPENTIN 300 MG CAP PO SCH (23:58)
[2016-12-06] MEDS: MEXILETINE 150 MG CAP PO SCH (23:58)
[2016-12-07 06:27] LABS: Anion Gap 11 mmol/L; Blood Urea Nitrogen 17 mg/dL (7-17); Calcium 8.9 mg/dL (8.4-10.2); Carbon Dioxide 17 mmol/L (22-30); Chloride 112 mmol/L (98-107); Glucose 138 mg/dL (74-99); Non-African American GFR(MDRD) >60 (>60 ml/min/1.73 sqM); Potassium 4.7 mmol/L (3.5-5.1); Sodium 140 mmol/L (137-145)
[2016-12-07 06:33] LABS: Anisocytosis Slight; Basophils % (A) 0 %; CH 25.5; CHCM 31.2; Eosinophils % (A) 0 %; HCT 40.4 % (34.0-46.0); HDW 3.35; HGB 12.2 gm/dL (11.4-16.0); Hypochromasia Moderate; Luc # (Auto) 0.03; Luc % (Auto) 1; Lymphocytes # (A) 0.4 k/uL (1.0-4.8); Lymphocytes % (A) 6 %; MCH 24.8 pg (25.0-35.0); MCHC 30.1 g/dL (31.0-37.0); MCV 82.3 fL (80.0-100.0); Mean Platelet Volume 8.2; Monocytes # (A) 0.1 k/uL (0-1.0); Monocytes % (A) 1 %; Neutrophils # (A) 6.1 k/uL (1.3-7.7); Neutrophils % (A) 92 %; RBC 4.91 m/uL (3.80-5.40); WBC 6.7 k/uL (3.8-10.6); WBC (Perox) 7.22
[2016-12-07] MEDS: PANTOPRAZOLE 40 MG TABLET PO SCH (06:49)
[2016-12-07] MEDS ORDERED: HEPARIN SODIUM,PORCINE 5,000 UNIT/ML 1 ML VIAL IV PRN (08:01)
[2016-12-07] MEDS ORDERED: HEPARIN SODIUM,PORCINE 5,000 UNIT/ML 1 ML VIAL IV ONE (08:01)
--- NOTE | 2016-12-07 08:25 | P.CRDCN ---
History of Present Illness Consult date: 12/07/16 Requesting physician: Darron Mccormick Reason for Consult (text): Atrial flutter Chief complaint: Fall History of present illness: This is a 71-year-old female who follows with Dr. Workman in the office. She has a known history of coronary artery disease with prior revascularization, severe ischemic cardio myopathy with prior AICD, severe underlying peripheral arterial disease with prior peripheral revascularization, chronic persistent atrial fibrillation/flutter with prior ablation, prior TIA, hypertension, hyperlipidemia, COPD, noncompliance and hypothyroidism. Patient is to not answering all questions this morning, but the questions that she is answering, she indicates that she had fallen at home. She denies passing out, states that she tripped and fell. Patient had been discharged home on Eliquis, has not been taking that at home, EKG on admission here shows a ventricular paced rhythm with underlying atrial flutter. Her heart rate is in the 60s. Blood pressure this morning 158/80 with a heart rate in the 60s, 96% on room air. Chest x-ray reveals patchy density in the right lower lobe which may reflect an infiltrate. No overt congestive heart failure. Abdominal and pelvic CT performed which revealed suspicion of sludge within the gallbladder, diverticulosis without any diverticulitis. CTA of the chest was performed which revealed an L1 compression fracture which may be acute or subacute, no pulmonary embolism. White blood cell count on admission 11.1, 6.7 this morning. Hematoma 12.2, platelet count 190, sodium 140, potassium 4.7, d-dimer 2.4. Magnesium 2.1. Initial troponin 0.035. At the time of my examination this morning, patient appears quite groggy however intermittently does answer questions appropriately. Past Medical History Past Medical History: Atrial Fibrillation, Atrial Flutter, Cancer, Heart Failure , COPD, CVA/TIA, GERD/Reflux, GI Bleed, Hyperlipidemia, Hypertension, Myocardial Infarction (NV), Pneumonia, Thyroid Disorder, Vascular Disorder Additional Past Medical History / Comment(s): Acute renal failure due to diuretics, hypokalemia due to diuretics, nonsustained Vtach and moderate mitral regurgitation, CVA in 2012, NV's, ischemic cardiomyopathy, PVD, THYROID CA with surgery, anemia due to lower GI bleed, diverticulitis, sinus problems, vertebral fx (disc number unk), back pain. Last Myocardial Infarction Date:: 2012 History of Any Multi-Drug Resistant Organisms: None Reported Past Surgical History: Ablation, AICD, Back Surgery, Cardiac Ablation, Heart Catheterization With Stent, Pacemaker, Tubal Ligation Additional Past Surgical History / Comment(s): Cardiac ablation/AV node modification, 09/2012 arterial repair post ablation done at [place], cardioversion, arch/aortagram, total of 3 cardiac stents, THYROIDECTOMY, TROY CARPAL TUNNEL, colonoscopy. Past Anesthesia/Blood Transfusion Reactions: No Reported Reaction Date of Last Stent Placement:: 06-04-08 Type of Cardiac Device: Permanent Pacemaker, AICD Device Placement Date:: 02-04-13 AICD with pacer added 11/02/15 Smoking Status: Former smoker - Past Family History Sister(s) Family Medical History: Cancer Brother(s) Family Medical History: Cancer Father Family Medical History: No Reported History Additional Family Medical History / Comment(s): Father had head trauma due to MVA and 6 months later. Mother Family Medical History: Myocardial Infarction (NV) Additional Family Medical History / Comment(s): Mother of a NV at the age of 75 yrs. Son(s) Family Medical History: Cancer Medications and Allergies Home Medications Medication Instructions Recorded Confirmed Type Albuterol Sulfate [Ventolin HFA] 1 puff INHALATION RT-Q4H PRN 04/16/14 12/06/16 History Ergocalciferol (Vitamin D2) 50,000 unit PO WE 04/16/14 12/06/16 History [Drisdol] Multivitamins, Thera [Multivitamin 1 tab PO DAILY 12/10/14 12/06/16 History (formulary)] ALPRAZolam [Xanax] 0.25 mg PO BID PRN #30 tab 01/07/15 12/06/16 Rx Omeprazole [PriLOSEC] 20 mg PO AC-BRKFST #30 cap 04/25/15 12/06/16 Rx Atorvastatin [Lipitor] 40 mg PO HS 08/17/15 12/06/16 History Amiodarone [Cordarone] 200 mg PO HS 09/17/15 12/06/16 History Spironolactone [Aldactone] 25 mg PO DAILY@1700 10/30/15 12/06/16 History Mexiletine [Mexitil] 150 mg PO Q8HR 04/27/16 12/06/16 History Baclofen [Lioresal] 10 mg PO TID PRN 05/02/16 12/06/16 History Metoprolol Succinate (ER) [Toprol 50 mg PO DAILY 05/02/16 12/06/16 History XL] Levothyroxine Sodium [Synthroid] 125 mcg PO SUFRSA 08/21/16 12/06/16 History Albuterol Nebulized [Ventolin 2.5 mg INHALATION RT-QID 12/06/16 12/06/16 History Nebulized] Alendronate Sodium [Fosamax] 70 mg PO Q7D 12/06/16 12/06/16 History Furosemide [Lasix] 40 mg PO DAILY@1400 12/06/16 12/06/16 History Furosemide [Lasix] 80 mg PO DAILY@0800 12/06/16 12/06/16 History Gabapentin [Neurontin] 300 mg PO QID 12/06/16 12/06/16 History HYDROcodone/APAP 7.5-325MG [[place] 1 tab PO Q12H PRN 12/06/16 12/06/16 History 7.5-325] OXcarbazepine [Trileptal] 150 mg PO TID 12/06/16 12/06/16 History Allergies Allergy/AdvReac Type Severity Reaction Status Date / Time hydromorphone HCl Allergy SHORTNESS Verified 12/06/16 09:52 [From Dilaudid] OF BREATH Iodinated Contrast- Oral and Allergy Rash/Hives Verified 12/06/16 09:52 IV Dye with [Iodinated Contrast Media - nausea and IV Dye] confusion levofloxacin Allergy Rash/Hives Verified 12/06/16 09:52 phenytoin sodium Allergy Nausea & Verified 12/06/16 09:52 [From Dilantin] Vomiting shellfish derived Allergy Swelling/Ra Verified 12/06/16 09:52 sh fentanyl AdvReac Severe Anaphylaxis Verified 12/06/16 09:52 morphine AdvReac Severe Anaphylaxis Verified 12/06/16 09:52 aspirin AdvReac Nausea & Verified 12/06/16 09:52 Vomiting ciprofloxacin [From Cipro] AdvReac counteracts Verified 12/06/16 09:52 w/heart meds. codeine AdvReac Rash/Hives Verified 12/06/16 09:52 Mushroom AdvReac swelling/ra Verified 12/06/16 09:52 sh CONTRAST DYE AdvReac Unknown Uncoded 08/21/16 10:28 Physical Exam Vitals: Vital Signs Temp Pulse Pulse Pulse Resp BP BP 12/07/16 04:00 97 F L 61 61 17 159/86 12/07/16 00:00 98.4 F 60 60 18 112/55 12/06/16 20:31 77 12/06/16 20:23 76 12/06/16 20:00 97.9 F 60 60 17 113/73 12/06/16 16:00 97.6 F 67 18 139/89 12/06/16 15:00 97.8 F 79 20 124/83 12/06/16 14:00 60 20 140/82 12/06/16 13:35 68 20 143/70 12/06/16 12:55 74 20 132/86 12/06/16 11:00 88 20 142/84 12/06/16 08:58 97.9 F 80 20 148/91 Pulse Ox 12/07/16 04:00 96 12/07/16 00:00 94 L 12/06/16 20:31 12/06/16 20:23 12/06/16 20:00 96 12/06/16 16:00 95 12/06/16 15:00 97 12/06/16 14:00 99 12/06/16 13:35 98 12/06/16 12:55 97 12/06/16 11:00 97 12/06/16 08:58 98 Intake and Output 12/06/16 12/07/16 12/07/16 22:59 06:59 14:59 Intake Total 400 Balance 400 Intake: Intake, IV Titration 400 Amount Sodium Chloride 0.9% 1, 400 000 ml @ 100 mls/hr IV . Q10H ONE Rx#:[id number] Other: Voiding Method Diaper Diaper # Voids 1 2 Weight 69 kg PHYSICAL EXAMINATION: HEENT: Head is atraumatic, normocephalic. Pupils equal, round. Neck is supple. There is no elevated jugular venous pressure. HEART EXAMINATION: Heart S1 and S2 irregularly irregular a systolic murmur is heard CHEST EXAMINATION: Lungs reveal crackles to bilateral bases ABDOMEN: Soft, nontender. Bowel sounds are heard. No organomegaly noted. EXTREMITIES: 2+ peripheral pulses with no evidence of peripheral edema and no calf tenderness noted. NEUROLOGIC [patient is awake, sleepy, alert and oriented 3 Results 12/07/16 05:41 12/07/16 05:41 Cardiac Enzymes 12/06/16 12/06/16 Range/Units 09:35 09:35 AST 23 (14-36) U/L CK-MB (CK-2) 2.7 H* (0.0-2.4) ng/mL Troponin I 0.035 H* (0.000-0.034) ng/mL Coagulation 12/06/16 Range/Units 09:35 PT 10.8 (9.0-12.0) sec APTT 23.8 (22.0-30.0) sec CBC 12/06/16 12/07/16 Range/Units 09:35 05:41 WBC 11.1 H 6.7 (3.8-10.6) k/uL RBC 5.14 4.91 (3.80-5.40) m/uL Hgb 13.0 12.2 (11.4-16.0) gm/dL Hct 42.6 40.4 (34.0-46.0) % Plt Count 221 190 (150-450) k/uL Comprehensive Metabolic Panel 12/06/16 12/07/16 Range/Units 09:35 05:41 Sodium 143 140 (137-145) mmol/L Potassium 4.6 4.7 (3.5-5.1) mmol/L Chloride 108 H 112 H (98-107) mmol/L Carbon Dioxide 25 17 L (22-30) mmol/L BUN 15 17 (7-17) mg/dL Creatinine 0.99 0.90 (0.52-1.04) mg/dL Glucose 100 H 138 H (74-99) mg/dL Calcium 9.5 8.9 (8.4-10.2) mg/dL AST 23 (14-36) U/L ALT 27 (9-52) U/L Alkaline Phosphatase 123 (38-126) U/L Total Protein 7.0 (6.3-8.2) g/dL Albumin 4.2 (3.5-5.0) g/dL Current Medications Generic Name Dose Route Start Last Admin Trade Name Freq PRN Reason Stop Dose Admin Hydrocodone Bitart/Acetaminophen 1 each 12/06/16 20:13 12/06/16 20:45 [place] 7.5-325 PO 1 each Q12H PRN Administration Severe Pain Albuterol/Ipratropium 3 ml 12/07/16 08:00 Duoneb 0.5 Mg-3 Mg/3 Ml Soln INHALATION RT-QID YENNIFER Albuterol/Ipratropium 3 ml 12/06/16 20:35 Duoneb 0.5 Mg-3 Mg/3 Ml Soln INHALATION RT-Q2H PRN Shortness Of Breath Or Wheezing Amiodarone HCl 200 mg 12/06/16 21:00 12/06/16 21:47 Cordarone PO 200 mg HS YENNIFER Administration Atorvastatin Calcium 40 mg 12/06/16 21:00 12/06/16 21:47 Lipitor PO 40 mg HS YENNIFER Administration Baclofen 10 mg 12/06/16 20:13 12/06/16 21:48 Lioresal PO 10 mg TID PRN Administration Mild Spasms Ergocalciferol 50,000 unit 12/07/16 09:00 Vitamin D2 PO WE [facility] Furosemide 40 mg 12/07/16 14:00 Lasix PO DAILY@1400 [facility] Furosemide 80 mg 12/07/16 08:00 Lasix PO DAILY@0800 [facility] Gabapentin 300 mg 12/06/16 22:00 12/06/16 23:58 Neurontin PO 300 mg QID YENNIFER Administration Heparin Sodium (Porcine) 0 unit 12/07/16 08:01 Heparin IV PER PROTOCOL PRN Low PTT Protocol Sodium Chloride 1,000 mls @ 50 mls/hr 12/06/16 22:15 12/06/16 23:58 Saline 0.9% IV Not Given .Q20H [facility] Heparin Sodium/Dextrose 25,000 500 mls @ 16.56 mls/hr 12/07/16 08:15 unit/ IV Solution IV .Q24H [facility] Protocol 12 UNITS/KG/HR Levothyroxine Sodium 125 mcg 12/09/16 06:30 Synthroid PO SUFRSA [facility] Metoprolol Succinate 50 mg 12/07/16 09:00 Toprol Xl PO DAILY [facility] Mexiletine HCl 150 mg 12/07/16 00:00 12/06/16 23:58 Mexitil PO 150 mg Q8HR YENNIFER Administration Miscellaneous Information 1 each 12/06/16 20:40 Rx Info: Iv Contrast Was Given MISCELLANE 12/08/16 20:42 DAILY PRN Per Protocol Multivitamins 1 each 12/07/16 12:00 Theragran PO DAILY@1200 YENNIFER Oxcarbazepine 150 mg 12/06/16 16:00 12/06/16 21:47 Trileptal PO 150 mg TID YENNIFER Administration Pantoprazole Sodium 40 mg 12/07/16 07:30 12/07/16 06:49 Protonix PO 40 mg AC-BRKFST YENNIFER Administration Spironolactone 25 mg 12/06/16 17:00 12/06/16 16:37 Aldactone PO Not Given DAILY@1700 YENNIFER Intake and Output 12/06/16 12/07/16 12/07/16 22:59 06:59 14:59 Intake Total 400 Balance 400 Intake: Intake, IV Titration 400 Amount Sodium Chloride 0.9% 1, 400 000 ml @ 100 mls/hr IV . Q10H ONE Rx#:[id number] Other: Voiding Method Diaper Diaper # Voids 1 2 Weight 69 kg 12/07/16 05:41 12/07/16 05:41 EKG Interpretations (text) EKG shows a ventricular paced rhythm with underlying atrial flutter. Assessment and Plan Plan: Assessment and plan #1 falls #2 atrial flutter with controlled ventricular response, not on anticoagulation #2 known history of coronary artery disease with prior revascularization #4 PAD with prior peripheral revascularizations #5 COPD #6 nicotine dependence #7 hypertension #8 hyperlipidemia #9 prior CVA #10 noncompliance #11 chronic persistent atrial fibrillation #12 ischemic cardio myopathy with prior AICD implant #13 prior VT ablations #14 history of thyroid CA #15 abnormal troponin, 0.035, she denies having any chest discomfort. Negative PE on CAT scan Plan Patient on IV heparin. Patient has been instructed once again regarding the importance of compliance with taking her anticoagulation for stroke prevention, being that she has chronic persistent atrial fibrillation and prior stroke in the past. We will also resume her aspirin and home medications. We will obtain an echocardiogram with Doppler study, obtain 2 subsequent troponins. Further recommendations to follow. DNP note has been reviewed, I agree with a documented findings and plan of care. Patient was seen and examined.
[2016-12-07] MEDS: IPRATROPIUM-ALBUTEROL 3 ML NEB INHALATION SCH ×4 (08:45→19:47)
[2016-12-07] MEDS ORDERED: ERGOCALCIFEROL 50,000 UNIT CAP PO SCH (09:00)
--- NOTE | 2016-12-07 09:19 | XR ---
EXAMINATION TYPE: XR lumbar spine 2 or 3V DATE OF EXAM: 12/07/2016 CLINICAL HISTORY: Fall with back pain. TECHNIQUE: Frontal and lateral images of the lumbar spine are obtained. COMPARISON: CT abdomen and pelvis from yesterday. Lumbar spine x-ray August 21, 2016. FINDINGS: Osseous structures are demineralized which is noted low radiographic sensitivity. There ar e 5 lumbar type vertebral bodies identified. There is a transitional L6 type vertebra below these red emonstrated. The lumbar spine shows redemonstrates slight levoconvex scoliotic curvature. Vertebral b ab heights are within normal limits in the lumbar spine. There is mild multilevel disc space narrowi ng. There is more moderate disc space narrowing at L6 S1 level. There is increasing height loss super ior T12 endplate suspected acute on chronic mild to moderate compression type fracture as there is sc lerosis with now linear lucency involving the anterior aspect of the superior endplate now identified . Overlying vascular calcification of ectatic abdominal aorta is redemonstrated. IMPRESSION: There appears to be worsening or acute on chronic mild to moderate compression type fract ure through the superior T12 endplate.
[2016-12-07] MEDS: HEPARIN SODIUM,PORCINE/D5W PMX 25,000 UNIT in DEXTROSE/WATER 1 500ML.BAG IV SCH (09:26)
[2016-12-07] MEDS: FUROSEMIDE 40 MG TAB PO SCH ×2 (09:27→16:27)
[2016-12-07] MEDS: MEXILETINE 150 MG CAP PO SCH ×3 (09:27→23:56)
[2016-12-07] MEDS: MULTIVITAMINS, THERA 1 EACH TAB PO SCH (09:27)
[2016-12-07] MEDS: OXcarbazepine 150 MG TAB PO SCH ×3 (09:28→20:35)
[2016-12-07] MEDS: METOPROLOL SUCCINATE (ER) 50 MG TAB.ER.24H PO SCH (09:28)
[2016-12-07] MEDS: GABAPENTIN 300 MG CAP PO SCH ×4 (09:28→20:35)
--- NOTE | 2016-12-07 09:30 | CT ---
EXAMINATION TYPE: CT brain wo con DATE OF EXAM: 12/06/2016 COMPARISON: 08/08/2016 INDICATION: Altered mental changes DLP: 1645.2 mGycm, Automated exposure control for dose reduction was used. CONTRAST: None CT of the brain is performed utilizing 3 mm thick sections through the posterior fossa and 3 mm thick sections through the remaining calvarium. Study is performed within 24 hours of arrival to the hosp [facility]. No abnormal hyperdensity is present to suggest an acute intracranial hemorrhage. No mass lesion is evident. No acute infarcts are evident. Periventricular white matter changes are present, likely on the basis of chronic white matter ischemic change. Exam appears stable from July 2016. Ventricles and sulci are appropriate for the patient age. Paranasal sinuses and mastoid air cells within the [id number] are clear. IMPRESSIONS: 1. Chronic appearing Periventricular white matter ischemic type changes.
[2016-12-07] MEDS: ASPIRIN 81 MG PO SCH (09:31)
--- NOTE | 2016-12-07 09:40 | XR ---
EXAMINATION TYPE: XR thoracic spine 2V DATE OF EXAM: 12/07/2016 CLINICAL HISTORY: Fall with mid back pain. TECHNIQUE: Frontal, lateral, and swimmer's view of thoracic spine are obtained. COMPARISON: CT chest from yesterday. FINDINGS: Osseous structures are demineralized which is noted lower radiographic sensitivity. Thoraci c spine show S-shaped scoliotic curvature. There is been vertebroplasty at T5 and T6 vertebra at site s of fairly moderate compression fractures. There is mild to moderate height loss through the superio r T12 endplate, suspect acute on chronic injury. Note is made of cardiomegaly and multilead pacemaker /AICD. IMPRESSION: Acute on chronic compression fracture at T12 level is felt present. History of deminerali zation and chronic compression fractures noted.
[2016-12-07 09:55] LABS: INR 1.1 (<1.2); Prothrombin Time 11.4 sec (9.0-12.0)
--- NOTE | 2016-12-07 13:51 | P.CNPUL ---
History of Present Illness Consult date: 12/07/16 Reason for consult: dyspnea History of present illness: 71-year-old female patient with extensive cardiac history including history of coronary artery disease, ischemic cardiomyopathy, atrial fibrillation/flutter, multiple cardiac interventions ablations and currently the patient is an AICD and biventricular pacer in place and addition to previous history of TIA/CVA/ hypertension/hyperlipidemia/COPD/hypothyroidism/peripheral vascular disease, who came into the hospital yesterday after having some altered mentation. Apparently the patient was not speaking and she was mumbling and moaning and she was not following any commands and she had diminished level of consciousness. By the time the daughter arrived home the patient was able to speak however she still remained somewhat confused till she arrived to the hospital. She did not have any focal neurological deficit. No seizure activity was noted. No fever or chills. No aspiration. No cough or sputum production. No chest pain. No shortness of breath. The patient did not pass out however she was weak and she tipped and fell. Note that she is on no anticoagulation due to concern of a GI bleed. The patient has been treated with anticoagulation/Eliquis in the past. The chest x-ray revealed some limited patchy infiltration of the right lung base. CTA of the chest showed no evidence of any pulmonary embolism. There were a cardiomegaly. Segmental atelectasis in the upper lobes predominantly were seen in addition to some background emphysema. No acute pulmonary infiltration and edema or effusion was seen. There was also compression fracture of the T6/T7 spine and L1 fracture was also present that was subacute with 40% loss of anterior height. CAT scan of the abdomen and pelvis also confirmed the presence of mild bibasilar atelectasis. There was sludge within the gallbladder. There was also diverticulosis without active diverticulitis involving the sigmoid colon. Note that the CAT scan of the brain was also done and showed periventricular white matter ischemic changes. There was no mass lesion. No acute infarcts present. Findings are stable compared to the previous CAT scan of the head from July 2016. Review of Systems Constitutional: Reports fatigue, Reports lethargy, Reports weakness Eyes: denies blurred vision, denies bulging eye, denies decreased vision Ears: deny: decreased hearing, ear discharge, earache Ears, nose, mouth and throat: Denies headache, Denies sore throat Cardiovascular: Reports decreased exercise tolerance, Reports irregular heart beat, Reports shortness of breath Respiratory: Reports dyspnea Gastrointestinal: Denies abdominal pain, Denies diarrhea, Denies nausea, Denies vomiting Genitourinary: Denies dysuria, Denies hematuria Musculoskeletal: Denies myalgias Musculoskeletal: absent: ankle pain, ankle stiffness, ankle swelling Integumentary: Denies pruritus, Denies rash Neurological: Reports change in mentation, Reports weakness Psychiatric: Denies anxiety, Denies depression Endocrine: Denies fatigue, Denies weight change Past Medical History Past Medical History: Atrial Fibrillation, Atrial Flutter, Cancer, Heart Failure , COPD, CVA/TIA, GERD/Reflux, GI Bleed, Hyperlipidemia, Hypertension, Myocardial Infarction (NM), Pneumonia, Thyroid Disorder, Vascular Disorder Additional Past Medical History / Comment(s): Coronary artery disease, congestion heart failure, atrial fibrillation/flutter, previous history of nonsustained V. tach, moderate mitral regurgitation, previous CVA, peripheral vascular disease, thyroid cancer with previous thyroidectomy, chronic anemia, history of GI bleeding, vertebral fractures, chronic back pain, peripheral vascular disease, hypertension, cervical cancer Last Myocardial Infarction Date:: 2012 History of Any Multi-Drug Resistant Organisms: None Reported Past Surgical History: Ablation, AICD, Back Surgery, Cardiac Ablation, Heart Catheterization With Stent, Pacemaker, Tubal Ligation Additional Past Surgical History / Comment(s): Cardiac ablation/AV node modification, 09/2012 arterial repair post ablation done at [facility], cardioversion, arch/aortagram, total of 3 cardiac stents, THYROIDECTOMY, TROY CARPAL TUNNEL, colonoscopy. Past Anesthesia/Blood Transfusion Reactions: No Reported Reaction Date of Last Stent Placement:: 06-04-08 Type of Cardiac Device: Permanent Pacemaker, AICD Device Placement Date:: 02-04-13 AICD with pacer added 11/02/15 Smoking Status: Former smoker - Past Family History Sister(s) Family Medical History: Cancer Brother(s) Family Medical History: Cancer Father Family Medical History: No Reported History Additional Family Medical History / Comment(s): Father had head trauma due to MVA and 6 months later. Mother Family Medical History: Myocardial Infarction (NM) Additional Family Medical History / Comment(s): Mother of a NM at the age of 75 yrs. Son(s) Family Medical History: Cancer Medications and Allergies Home Medications Medication Instructions Recorded Confirmed Type Albuterol Sulfate [Ventolin HFA] 1 puff INHALATION RT-Q4H PRN 04/16/14 12/06/16 History Ergocalciferol (Vitamin D2) 50,000 unit PO WE 04/16/14 12/06/16 History [Drisdol] Multivitamins, Thera [Multivitamin 1 tab PO DAILY 12/10/14 12/06/16 History (formulary)] ALPRAZolam [Xanax] 0.25 mg PO BID PRN #30 tab 01/07/15 12/06/16 Rx Omeprazole [PriLOSEC] 20 mg PO AC-BRKFST #30 cap 04/25/15 12/06/16 Rx Atorvastatin [Lipitor] 40 mg PO HS 08/17/15 12/06/16 History Amiodarone [Cordarone] 200 mg PO HS 09/17/15 12/06/16 History Spironolactone [Aldactone] 25 mg PO DAILY@1700 10/30/15 12/06/16 History Mexiletine [Mexitil] 150 mg PO Q8HR 04/27/16 12/06/16 History Baclofen [Lioresal] 10 mg PO TID PRN 05/02/16 12/06/16 History Metoprolol Succinate (ER) [Toprol 50 mg PO DAILY 05/02/16 12/06/16 History XL] Levothyroxine Sodium [Synthroid] 125 mcg PO SUFRSA 08/21/16 12/06/16 History Albuterol Nebulized [Ventolin 2.5 mg INHALATION RT-QID 12/06/16 12/06/16 History Nebulized] Alendronate Sodium [Fosamax] 70 mg PO Q7D 12/06/16 12/06/16 History Furosemide [Lasix] 40 mg PO DAILY@1400 12/06/16 12/06/16 History Furosemide [Lasix] 80 mg PO DAILY@0800 12/06/16 12/06/16 History Gabapentin [Neurontin] 300 mg PO QID 12/06/16 12/06/16 History HYDROcodone/APAP 7.5-325MG [[place] 1 tab PO Q12H PRN 12/06/16 12/06/16 History 7.5-325] OXcarbazepine [Trileptal] 150 mg PO TID 12/06/16 12/06/16 History Allergies Allergy/AdvReac Type Severity Reaction Status Date / Time hydromorphone HCl Allergy SHORTNESS Verified 12/06/16 09:52 [From Dilaudid] OF BREATH Iodinated Contrast- Oral and Allergy Rash/Hives Verified 12/06/16 09:52 IV Dye with [Iodinated Contrast Media - nausea and IV Dye] confusion levofloxacin Allergy Rash/Hives Verified 12/06/16 09:52 phenytoin sodium Allergy Nausea & Verified 12/06/16 09:52 [From Dilantin] Vomiting shellfish derived Allergy Swelling/Ra Verified 12/06/16 09:52 sh fentanyl AdvReac Severe Anaphylaxis Verified 12/06/16 09:52 morphine AdvReac Severe Anaphylaxis Verified 12/06/16 09:52 aspirin AdvReac Nausea & Verified 12/06/16 09:52 Vomiting ciprofloxacin [From Cipro] AdvReac counteracts Verified 12/06/16 09:52 w/heart meds. codeine AdvReac Rash/Hives Verified 12/06/16 09:52 Mushroom AdvReac swelling/ra Verified 12/06/16 09:52 sh CONTRAST DYE AdvReac Unknown Uncoded 08/21/16 10:28 Physical Exam Vitals: Vital Signs Temp Pulse Pulse Pulse Resp BP BP 12/07/16 12:06 69 12/07/16 12:00 98 F 77 18 116/72 12/07/16 11:57 66 12/07/16 08:00 97.5 F L 62 18 111/64 12/07/16 04:00 97 F L 61 61 17 159/86 12/07/16 00:00 98.4 F 60 60 18 112/55 12/06/16 20:31 77 12/06/16 20:23 76 12/06/16 20:00 97.9 F 60 60 17 113/73 12/06/16 16:00 97.6 F 67 18 139/89 12/06/16 15:00 97.8 F 79 20 124/83 12/06/16 14:00 60 20 140/82 Pulse Ox 12/07/16 12:06 12/07/16 12:00 94 L 12/07/16 11:57 12/07/16 08:00 96 12/07/16 04:00 96 09/20/17 00:00 94 L 12/06/16 20:31 12/06/16 20:23 12/06/16 20:00 96 12/06/16 16:00 95 12/06/16 15:00 97 12/06/16 14:00 99 Intake and Output 12/06/16 12/07/16 12/07/16 22:59 06:59 14:59 Intake Total 400 240 Balance 400 240 Intake: Intake, IV Titration 400 Amount Sodium Chloride 0.9% 1, 400 000 ml @ 100 mls/hr IV . Q10H ONE Rx#:[id number] Oral 240 Other: Voiding Method Diaper Diaper Diaper # Voids 1 2 2 Weight 69 kg Gen. appearance the patient is calm and comfortable likely distress. Head is atraumatic normocephalic. Neck is soft and there is no JVDs no goiter or neck masses. Lungs sounds are diminished in lung bases otherwise clear. No wheezes overall currently crackles. Heart sounds are irregular, possible sinus and there is no significant murmurs appreciated.Abdominal exam revealed normal bowel sounds. The abdomen was soft, non-tender, and without masses, organomegaly , or appreciable enlargement of the abdominal aorta.Examination of the extremities revealed easily palpable radial, femoral and pedal pulses. There was no cyanosis, clubbing or edema. Neurologic exam is nonfocal and the patient is awake and oriented and there is no focal neurological deficit. Skin is negative for any ulcers or wounds or lesions. Skeletal exam is negative for any kyphoscoliosis or joint deformities or arthritis. Results - Laboratory Findings CBC and BMP: 12/07/16 05:41 12/07/16 05:41 PT/INR, D-dimer PT 11.4 sec (9.0-12.0) 12/07/16 09:37 INR 1.1 (<1.2) 12/07/16 09:37 D-Dimer 2.44 mg/L FEU (<0.60) H 12/06/16 17:08 Abnormal lab findings: Abnormal Labs 12/06/16 12/06/16 12/06/16 09:20 09:35 09:35 WBC 11.1 H MCH MCHC 30.5 L RDW 16.0 H Neutrophils # 9.3 H Lymphocytes # 0.9 L D-Dimer Chloride Carbon Dioxide Glucose CK-MB (CK-2) 2.7 H* Troponin I 0.035 H* Urine Protein Trace H Urine Ketones 1+ H 12/06/16 12/06/16 12/07/16 09:35 17:08 05:41 WBC MCH 24.8 L MCHC 30.1 L RDW 17.0 H Neutrophils # Lymphocytes # 0.4 L D-Dimer 2.44 H Chloride 108 H Carbon Dioxide Glucose 100 H CK-MB (CK-2) Troponin I Urine Protein Urine Ketones 12/07/16 05:41 WBC MCH MCHC RDW Neutrophils # Lymphocytes # D-Dimer Chloride 112 H Carbon Dioxide 17 L Glucose 138 H CK-MB (CK-2) Troponin I Urine Protein Urine Ketones - Diagnostic Findings Chest x-ray: image reviewed CT scan - chest: image reviewed Assessment and Plan Plan: Assessment 1 altered mentation currently under investigation. Patient has regained her mentation back to baseline and there is no focal neurological deficit. CAT scan of the brain is also negative. Rule out TIA. Mother the patient on no anticoagulants for now 2 limited infiltration of the right lung base probably some atelectasis. CAT scan of the chest shows no acute abnormalities and there is some background COPD 3 COPD currently inactive in stable 4 CHF 5 coronary artery disease with previous revascularization 6 chronic atrial fibrillation rate controlled. 7 AICD placement. 8 hypertension 9 hyperlipidemia 10 previous DVT, nonsustained currently on amiodarone 11 thyroid cancer the previous thyroidectomy 12 diverticular disease with previous history of GI bleed 13 compression fracture of the T-spine Plan No active pulmonary issues. Respiratory status is stable for now. A anticoagulation will be left up to cardiology. I think it's reasonable to the antibiotic coverage this patient and watch for any GI bleeding. Recommend cardiology consultation. Echocardiogram will be repeated.
--- NOTE | 2016-12-07 14:36 | P.PN ---
<Estrella Aguilar - Last Filed: 12/07/16 13:58> Progress Note - Text DATE OF SERVICE: 12/07/2016 PRESENTING COMPLAINT: Acute mental status changes HISTORY OF PRESENT ILLNESS: 71-year-old female brought in by EMS with chest pain and difficulty breathing, continually moaning in pain, unable to answer questions, determination was made that patient fell at home and she was having intractable back pain. Had some confusion on presentation. INTERVAL HISTORY: 12/07/2016: Patient sitting up in bed, appears comfortable however a bit slow to respond to questions. Able to answer questions appropriately, follow commands. States she continues to have some back pain, her head continues to hurt her from a previous bout of shingles, not obviously short of breath and no complaints of shortness of breath. Lumbar and thoracic spine images completed revealing worsening/acute on chronic compression type fracture through the superior T12 endplate, orthopedics will be consulted. REVIEW OF SYSTEMS: Done for constitutional ,cardiovascular, GI, pulmonary , musculoskeletal with relevant findings as above. CURRENT MEDICATIONS [place], amiodarone 200 mg by mouth at bedtime, baclofen 10 mg by mouth 3 times a day, Lasix 80 mg by mouth daily at 8:00 AM, Lasix 40 mg by mouth daily at 2:00 PM, Neurontin 300 mg by mouth 4 times a day, IV heparin, Synthroid 125 g, Toprol-XL 50 g by mouth daily Mexitil 150 mg by mouth every 8 hours, Trileptal 150 mg by mouth 3 times a day, Protonix 40 mg by mouth daily, spironolactone 25 mg by mouth daily. PHYSICAL EXAM VITAL SIGNS: Temperature 98.0, pulse 77, respiratory rate 18, blood pressure 116/72, oxygen saturation 94% on room air. GENERAL APPEARANCE: Sitting up in bed, not in distress, appears comfortable. EYES: Pupils equal. Conjunctiva normal. NECK: JVD not raised. Mass not palpable. RESPIRATORY: Respiratory effort normal. Lungs diminished to auscultation. CARDIOVASCULAR: First and second sounds normal. No edema. ABDOMEN: Soft. Liver and spleen not palpable. No tenderness. No mass palpable. PSYCHIATRY: Alert and oriented x3. Mood and affect normal. NEUROLOGICAL: Power and sensation grossly intact, straight leg raises 10 bilaterally, sacral and lumbar back pain when performing this maneuver, tenderness to palpation to the lumbar and sacral spine. INVESTIGATIONS: INR 1.1, TSH 8.460 ASSESSMENT: -Fall with possible blunt injury to the back and shoulder -Acute confusion, multifactorial could be medications, secondary to intractable pain, improving -Chronic congestive heart failure from ischemic cardiomyopathy EF less than 20% with AICD in place. -Moderate mitral regurgitation on rheumatic -History of atrial flutter fibrillation ventricular tachycardia -Coronary artery disease with prior history of stent. -COPD in an ex-smoker. -Hyperlipidemia. -Hypothyroidism, -Peripheral artery disease. -Colonic diverticulosis. PLAN: Echocardiogram pending, anticoagulation per cardiology preference, mental status overall has improved since admission, etiology imaging reveals possible new injuries we'll consult orthospine for their input. Continue heating pad use for pain control. Gently hydrate patient. Plan of care discussed at the bedside with the patient she is in agreement. We will continue to follow closely. [employer] statement: Patient was seen and examined by nurse practitioner Estrella Aguilar and all elements of the case discussed with attending Dr. Mccormick <Darron Mccormick - Last Filed: 12/07/16 17:11> Progress Note - Text Attending note. Date of service-12/07/2016 This patient was seen and examined by me . Discussed the patient with my nurse practitioner Ms. Aguilar. Presented with fall. Couldn't give much of a history yesterday. Stated she had hit her head yesterday. Sensitive in the scalp. Overall feeling much better today. No focal weakness. On examination: Lungs-decreased breath sounds, cardiovascular heart is irregular, psych AO 3. Patient is tenderness over the scalp on the top Investigations: White count 6.7, potassium 4.7 Assessment and plan: -possible acute concussion secondary to fall and head hitting the floor. Now recovered. Overall patient is looking better today. We will await input from my colleagues. Encouraged to be out of bed.. Cardiology addressed with the patient about the anticoagulation
[2016-12-07] MEDS: HYDROcodone/APAP 7.5-325MG 1 EACH TAB PO PRN (16:26)
[2016-12-07] MEDS: SODIUM CHLORIDE 0.9% 1,000 ML IV SCH (16:27)
[2016-12-07] MEDS: SPIRONOLACTONE 25 MG TAB PO SCH (16:27)
--- NOTE | 2016-12-07 17:22 | P.CNEND ---
History of Present Illness Consult date: 12/07/16 Consult reason: Abnormal thyroid function tests Requesting physician: Estrella Aguilar History of present illness: 71-year-old female who was admitted in the hospital with altered mental status and confusion. Patient has history of postsurgical hypothyroidism. Patient was on stable dose of levothyroxine 125 MCG at home which was recently decreased by primary care physician to 112mcg Upon admission patient is found to have elevated TSH. Endocrinology was consulted to see if abnormal thyroid function tests are contributing to patient's medical condition Of note patient has history of stable atrial fibrillation Review of Systems All systems: negative Constitutional: Denies chills, Denies fever Eyes: denies blurred vision, denies pain Ears, nose, mouth and throat: Reports as per HPI Cardiovascular: Denies chest pain, Denies shortness of breath Respiratory: Denies cough Gastrointestinal: Denies abdominal pain, Denies diarrhea, Denies nausea, Denies vomiting Genitourinary: Denies dysuria, Denies hematuria Musculoskeletal: Reports as per HPI Neurological: Denies numbness, Denies weakness Psychiatric: Reports as per HPI Past Medical History Past Medical History: Atrial Fibrillation, Atrial Flutter, Cancer, Heart Failure , COPD, CVA/TIA, GERD/Reflux, GI Bleed, Hyperlipidemia, Hypertension, Myocardial Infarction ([place]), Pneumonia, Thyroid Disorder, Vascular Disorder Additional Past Medical History / Comment(s): Coronary artery disease, congestion heart failure, atrial fibrillation/flutter, previous history of nonsustained V. tach, moderate mitral regurgitation, previous CVA, peripheral vascular disease, thyroid cancer with previous thyroidectomy, chronic anemia, history of GI bleeding, vertebral fractures, chronic back pain, peripheral vascular disease, hypertension, cervical cancer Last Myocardial Infarction Date:: 2012 History of Any Multi-Drug Resistant Organisms: None Reported Past Surgical History: Ablation, AICD, Back Surgery, Cardiac Ablation, Heart Catheterization With Stent, Pacemaker, Tubal Ligation Additional Past Surgical History / Comment(s): Cardiac ablation/AV node modification, 09/2012 arterial repair post ablation done at [place], cardioversion, arch/aortagram, total of 3 cardiac stents, THYROIDECTOMY, TROY CARPAL TUNNEL, colonoscopy. Past Anesthesia/Blood Transfusion Reactions: No Reported Reaction Date of Last Stent Placement:: 06-04-08 Type of Cardiac Device: Permanent Pacemaker, AICD Device Placement Date:: 02-04-13 AICD with pacer added 11/02/15 Smoking Status: Former smoker - Past Family History Sister(s) Family Medical History: Cancer Brother(s) Family Medical History: Cancer Father Family Medical History: No Reported History Additional Family Medical History / Comment(s): Father had head trauma due to MVA and 6 months later. Mother Family Medical History: Myocardial Infarction ([place]) Additional Family Medical History / Comment(s): Mother of a [place] at the age of 75 yrs. Son(s) Family Medical History: Cancer Medications and Allergies Home Medications Medication Instructions Recorded Confirmed Type Albuterol Sulfate [Ventolin HFA] 1 puff INHALATION RT-Q4H PRN 04/16/14 12/06/16 History Ergocalciferol (Vitamin D2) 50,000 unit PO WE 04/16/14 12/06/16 History [Drisdol] Multivitamins, Thera [Multivitamin 1 tab PO DAILY 12/10/14 12/06/16 History (formulary)] ALPRAZolam [Xanax] 0.25 mg PO BID PRN #30 tab 01/07/15 12/06/16 Rx Omeprazole [PriLOSEC] 20 mg PO AC-BRKFST #30 cap 04/25/15 12/06/16 Rx Atorvastatin [Lipitor] 40 mg PO HS 08/17/15 12/06/16 History Amiodarone [Cordarone] 200 mg PO HS 09/17/15 12/06/16 History Spironolactone [Aldactone] 25 mg PO DAILY@1700 10/30/15 12/06/16 History Mexiletine [Mexitil] 150 mg PO Q8HR 04/27/16 12/06/16 History Baclofen [Lioresal] 10 mg PO TID PRN 05/02/16 12/06/16 History Metoprolol Succinate (ER) [Toprol 50 mg PO DAILY 05/02/16 12/06/16 History XL] Levothyroxine Sodium [Synthroid] 125 mcg PO SUFRSA 08/21/16 12/06/16 History Albuterol Nebulized [Ventolin 2.5 mg INHALATION RT-QID 12/06/16 12/06/16 History Nebulized] Alendronate Sodium [Fosamax] 70 mg PO Q7D 12/06/16 12/06/16 History Furosemide [Lasix] 40 mg PO DAILY@1400 12/06/16 12/06/16 History Furosemide [Lasix] 80 mg PO DAILY@0800 12/06/16 12/06/16 History Gabapentin [Neurontin] 300 mg PO QID 12/06/16 12/06/16 History HYDROcodone/APAP 7.5-325MG [[place] 1 tab PO Q12H PRN 12/06/16 12/06/16 History 7.5-325] OXcarbazepine [Trileptal] 150 mg PO TID 12/06/16 12/06/16 History Allergies Allergy/AdvReac Type Severity Reaction Status Date / Time hydromorphone HCl Allergy SHORTNESS Verified 12/06/16 09:52 [From Dilaudid] OF BREATH Iodinated Contrast- Oral and Allergy Rash/Hives Verified 12/06/16 09:52 IV Dye with [Iodinated Contrast Media - nausea and IV Dye] confusion levofloxacin Allergy Rash/Hives Verified 12/06/16 09:52 phenytoin sodium Allergy Nausea & Verified 12/06/16 09:52 [From Dilantin] Vomiting shellfish derived Allergy Swelling/Ra Verified 12/06/16 09:52 sh fentanyl AdvReac Severe Anaphylaxis Verified 12/06/16 09:52 morphine AdvReac Severe Anaphylaxis Verified 12/06/16 09:52 aspirin AdvReac Nausea & Verified 12/06/16 09:52 Vomiting ciprofloxacin [From Cipro] AdvReac counteracts Verified 12/06/16 09:52 w/heart meds. codeine AdvReac Rash/Hives Verified 12/06/16 09:52 Mushroom AdvReac swelling/ra Verified 12/06/16 09:52 sh CONTRAST DYE AdvReac Unknown Uncoded 08/21/16 10:28 Physical Exam Vitals: Vital Signs Temp Pulse Pulse Pulse Resp BP Pulse Ox 12/07/16 16:18 72 12/07/16 16:08 72 12/07/16 12:06 69 12/07/16 12:00 98 F 77 18 116/72 94 L 12/07/16 11:57 66 12/07/16 08:00 97.5 F L 62 18 111/64 96 12/07/16 04:00 97 F L 61 61 17 159/86 96 12/07/16 00:00 98.4 F 60 60 18 112/55 94 L 12/06/16 20:31 77 12/06/16 20:23 76 12/06/16 20:00 97.9 F 60 60 17 113/73 96 Intake and Output 12/07/16 12/07/16 12/07/16 06:59 14:59 22:59 Intake Total 400 240 Balance 400 240 Intake: Intake, IV Titration 400 Amount Sodium Chloride 0.9% 1, 400 000 ml @ 100 mls/hr IV . Q10H [facility] Rx#:[id number] Oral 240 Other: Voiding Method Diaper Diaper Diaper # Voids 2 2 Weight 69 kg - Constitutional General appearance: no acute distress - EENT Eyes: EOMI - Neck Neck: no lymphadenopathy - Respiratory Respiratory: bilateral: CTA - Cardiovascular Rhythm: irregularly irregular Heart sounds: normal: S1, S2 - Gastrointestinal General gastrointestinal: no organomegaly, soft, no tenderness - Neurologic Neurologic: CNII-XII intact - Psychiatric Psychiatric: A&O x's 3 Results - Labs Result Diagrams: 12/07/16 05:41 12/07/16 05:41 Abnormal Lab Results - Last 24 Hours (Table) 12/06/16 12/07/16 12/07/16 Range/Units 17:08 05:41 05:41 MCH 24.8 L (25.0-35.0) pg MCHC 30.1 L (31.0-37.0) g/dL RDW 17.0 H (11.5-15.5) % Lymphocytes # 0.4 L (1.0-4.8) k/uL D-Dimer 2.44 H (<0.60) mg/L FEU Chloride 112 H (98-107) mmol/L Carbon Dioxide 17 L (22-30) mmol/L Glucose 138 H (74-99) mg/dL TSH (0.465-4.680) mIU/L 12/07/16 Range/Units 05:41 MCH (25.0-35.0) pg MCHC (31.0-37.0) g/dL RDW (11.5-15.5) % Lymphocytes # (1.0-4.8) k/uL D-Dimer (<0.60) mg/L FEU Chloride (98-107) mmol/L Carbon Dioxide (22-30) mmol/L Glucose (74-99) mg/dL TSH 8.460 H (0.465-4.680) mIU/L Microbiology - Last 24 Hours (Table) 12/06/16 09:20 Urine Culture - Preliminary Urine,Catheterized Diabetes panel 12/07/16 Range/Units 05:41 Sodium 140 (137-145) mmol/L Potassium 4.7 (3.5-5.1) mmol/L Chloride 112 H (98-107) mmol/L Carbon Dioxide 17 L (22-30) mmol/L BUN 17 (7-17) mg/dL Creatinine 0.90 (0.52-1.04) mg/dL Glucose 138 H (74-99) mg/dL Calcium 8.9 (8.4-10.2) mg/dL Thyroid panel 12/07/16 Range/Units 05:41 TSH 8.460 H (0.465-4.680) mIU/L Calcium panel 12/07/16 Range/Units 05:41 Calcium 8.9 (8.4-10.2) mg/dL Pituitary panel 12/07/16 12/07/16 Range/Units 05:41 05:41 Sodium 140 (137-145) mmol/L Potassium 4.7 (3.5-5.1) mmol/L Chloride 112 H (98-107) mmol/L Carbon Dioxide 17 L (22-30) mmol/L BUN 17 (7-17) mg/dL Creatinine 0.90 (0.52-1.04) mg/dL Glucose 138 H (74-99) mg/dL Calcium 8.9 (8.4-10.2) mg/dL TSH 8.460 H (0.465-4.680) mIU/L Adrenal panel 12/07/16 Range/Units 05:41 Sodium 140 (137-145) mmol/L Potassium 4.7 (3.5-5.1) mmol/L Chloride 112 H (98-107) mmol/L Carbon Dioxide 17 L (22-30) mmol/L BUN 17 (7-17) mg/dL Creatinine 0.90 (0.52-1.04) mg/dL Glucose 138 H (74-99) mg/dL Calcium 8.9 (8.4-10.2) mg/dL Assessment and Plan (1) Hypothyroidism associated with surgical procedure Status: Acute Plan: 71-year-old female who was admitted with abnormal thyroid function test. TSH 8.2 Patient has known history of hypothyroidism She was taking 125 MCG levothyroxine which was decreased to 112 MCG by primary care physician for weeks ago Recommend continuing the levothyroxine at 112 MCG. Can be safely increased to 125 MCG I do not believe that TSH of 8.2 has caused altered mental status. Given the history of atrial fibrillation increasing dose more than 125 could cause worsening of atrial fibrillation. Thank you for letting me participate in the patient care
[2016-12-07] MEDS: ATORVASTATIN 40 MG TAB PO SCH (20:35)
[2016-12-07] MEDS: AMIODARONE 200 MG TAB PO SCH (20:35)
[2016-12-08] MEDS: PANTOPRAZOLE 40 MG TABLET PO SCH (07:02)
[2016-12-08] MEDS: MEXILETINE 150 MG CAP PO SCH ×2 (08:15→15:22)
[2016-12-08] MEDS: FUROSEMIDE 40 MG TAB PO SCH ×2 (08:15→14:33)
[2016-12-08] MEDS: OXcarbazepine 150 MG TAB PO SCH ×2 (08:16→15:22)
[2016-12-08] MEDS: ASPIRIN 81 MG PO SCH (08:16)
[2016-12-08] MEDS: GABAPENTIN 300 MG CAP PO SCH ×2 (08:16→11:49)
[2016-12-08 09:23] LABS: Anisocytosis Slight; Basophils % (A) 0 %; CHCM 28.9; Eosinophils % (A) 0 %; HCT 39.1 % (34.0-46.0); HDW 3.17; HGB 11.3 gm/dL (11.4-16.0); Hypochromasia Marked; Luc # (Auto) 0.06; Luc % (Auto) 1; Lymphocytes % (A) 9 %; MCH 25.2 pg (25.0-35.0); MCHC 28.9 g/dL (31.0-37.0); MCV 87.1 fL (80.0-100.0); Mean Platelet Volume 7.5; Monocytes # (A) 0.4 k/uL (0-1.0); Monocytes % (A) 4 %; Neutrophils # (A) 9.6 k/uL (1.3-7.7); Neutrophils % (A) 86 %; RBC 4.49 m/uL (3.80-5.40); WBC 11.2 k/uL (3.8-10.6); WBC (Perox) 11.83
[2016-12-08] MEDS: HEPARIN SODIUM,PORCINE/D5W PMX 25,000 UNIT in DEXTROSE/WATER 1 500ML.BAG IV SCH (09:30)
[2016-12-08 09:43] LABS: Calcium 8.2 mg/dL (8.4-10.2); Potassium 4.3 mmol/L (3.5-5.1)
--- NOTE | 2016-12-08 09:48 | P.CNOR ---
History of Present Illness - [facility] Consult date: 12/08/16 Consult reason: back pain History of present illness: Patient is 71-year-old female known to our service. She was admitted to the hospital on the regards to severe back pain and chest pain. Apparently was somewhat difficult to get a clear history from her as she was moaning and had difficulty answering questions. They're able to find that the patient sustained a fall at home and had some increasing back pain. She is having great difficulty with any sort of in relation immobilization and presented to the hospital. She has history of compression fractures at her back at T5 and T6 with history of kyphoplasty which had done fairly well for her. We had seen her just last week in hospital and she was doing fairly well and increasing her mobility. Unfortunate she had sustained a fall at home since we last saw her and was having increasing pain and presented to the hospital for this. She's been worked up in regards to her cardiac and a Roxy issues as she does have chronic and stable medical issues including atrial fibrillation hypertension. She says that now she has been having significant improvement since being in the hospital. She has been able to increase her mobility. She is still having some pain at her mid back but she feels that this is doing better. She denies any numbness tingling in her upper or lower extremity. She denies any weakness in her extremity. Review of Systems Mid back pain. Denies any shortness breath currently. History of prior kyphoplasty at her upper thoracic spine which has been stable for her. Denies anytingling or weakness in her upper or lower extremity. Denies any changes in neurologic status. Past Medical History Past Medical History: Atrial Fibrillation, Atrial Flutter, Cancer, Heart Failure , COPD, CVA/TIA, GERD/Reflux, GI Bleed, Hyperlipidemia, Hypertension, Myocardial Infarction ([place]), Musculoskeletal Disorder (History of osteoporosis with compression fractures at T5 6 status post kyphoplasty which are stable), Pneumonia, Thyroid Disorder, Vascular Disorder Additional Past Medical History / Comment(s): Coronary artery disease, congestion heart failure, atrial fibrillation/flutter, previous history of nonsustained V. tach, moderate mitral regurgitation, previous CVA, peripheral vascular disease, thyroid cancer with previous thyroidectomy, chronic anemia, history of GI bleeding, vertebral fractures, chronic back pain, peripheral vascular disease, hypertension, cervical cancer Last Myocardial Infarction Date:: 2012 History of Any Multi-Drug Resistant Organisms: None Reported Past Surgical History: Ablation, AICD, Back Surgery, Cardiac Ablation, Heart Catheterization With Stent, Pacemaker, Tubal Ligation Additional Past Surgical History / Comment(s): Cardiac ablation/AV node modification, 09/2012 arterial repair post ablation done at [place], cardioversion, arch/aortagram, total of 3 cardiac stents, THYROIDECTOMY, TROY CARPAL TUNNEL, colonoscopy. Past Anesthesia/Blood Transfusion Reactions: No Reported Reaction Date of Last Stent Placement:: 06-04-08 Type of Cardiac Device: Permanent Pacemaker, AICD Device Placement Date:: 02-04-13 AICD with pacer added 11/02/15 Smoking Status: Former smoker - Past Family History Sister(s) Family Medical History: Cancer Brother(s) Family Medical History: Cancer Father Family Medical History: No Reported History Additional Family Medical History / Comment(s): Father had head trauma due to MVA and 6 months later. Mother Family Medical History: Myocardial Infarction ([place]) Additional Family Medical History / Comment(s): Mother of a [place] at the age of 75 yrs. Son(s) Family Medical History: Cancer Medications and Allergies Home Medications Medication Instructions Recorded Confirmed Type Albuterol Sulfate [Ventolin HFA] 1 puff INHALATION RT-Q4H PRN 04/16/14 12/06/16 History Ergocalciferol (Vitamin D2) 50,000 unit PO WE 04/16/14 12/06/16 History [Drisdol] Multivitamins, Thera [Multivitamin 1 tab PO DAILY 12/10/14 12/06/16 History (formulary)] ALPRAZolam [Xanax] 0.25 mg PO BID PRN #30 tab 01/07/15 12/06/16 Rx Omeprazole [PriLOSEC] 20 mg PO AC-BRKFST #30 cap 04/25/15 12/06/16 Rx Atorvastatin [Lipitor] 40 mg PO HS 08/17/15 12/06/16 History Amiodarone [Cordarone] 200 mg PO HS 09/17/15 12/06/16 History Spironolactone [Aldactone] 25 mg PO DAILY@1700 10/30/15 12/06/16 History Mexiletine [Mexitil] 150 mg PO Q8HR 04/27/16 12/06/16 History Baclofen [Lioresal] 10 mg PO TID PRN 05/02/16 12/06/16 History Metoprolol Succinate (ER) [Toprol 50 mg PO DAILY 05/02/16 12/06/16 History XL] Levothyroxine Sodium [Synthroid] 125 mcg PO SUFRSA 08/21/16 12/06/16 History Albuterol Nebulized [Ventolin 2.5 mg INHALATION RT-QID 12/06/16 12/06/16 History Nebulized] Alendronate Sodium [Fosamax] 70 mg PO Q7D 12/06/16 12/06/16 History Furosemide [Lasix] 40 mg PO DAILY@1400 12/06/16 12/06/16 History Furosemide [Lasix] 80 mg PO DAILY@0800 12/06/16 12/06/16 History Gabapentin [Neurontin] 300 mg PO QID 12/06/16 12/06/16 History HYDROcodone/APAP 7.5-325MG [[place] 1 tab PO Q12H PRN 12/06/16 12/06/16 History 7.5-325] OXcarbazepine [Trileptal] 150 mg PO TID 12/06/16 12/06/16 History Allergies Allergy/AdvReac Type Severity Reaction Status Date / Time hydromorphone HCl Allergy SHORTNESS Verified 12/06/16 09:52 [From Dilaudid] OF BREATH Iodinated Contrast- Oral and Allergy Rash/Hives Verified 12/06/16 09:52 IV Dye with [Iodinated Contrast Media - nausea and IV Dye] confusion levofloxacin Allergy Rash/Hives Verified 12/06/16 09:52 phenytoin sodium Allergy Nausea & Verified 12/06/16 09:52 [From Dilantin] Vomiting shellfish derived Allergy Swelling/Ra Verified 12/06/16 09:52 sh fentanyl AdvReac Severe Anaphylaxis Verified 12/06/16 09:52 morphine AdvReac Severe Anaphylaxis Verified 12/06/16 09:52 aspirin AdvReac Nausea & Verified 12/06/16 09:52 Vomiting ciprofloxacin [From Cipro] AdvReac counteracts Verified 12/06/16 09:52 w/heart meds. codeine AdvReac Rash/Hives Verified 12/06/16 09:52 Mushroom AdvReac swelling/ra Verified 12/06/16 09:52 sh CONTRAST DYE AdvReac Unknown Uncoded 08/21/16 10:28 Physical Examination Osteopathic Statement: *. No significant issues noted on an osteopathic structural exam other than those noted in the History and Physical/Consult. - L Spine: dermatomal strength & reflexes bilateral Strength: hip flexion: 5/5 (At her back and the skin is clear. There is no open wounds lacerations or abrasions or rashes. She is nontender and upper thoracic spine. She has positive tenderness to palpation at her thoracolumbar junction. There is no obvious crepitus. Her lower extremity shows active and passive range of motion intact with strength intact. Her upper extremities have full active and passive range of motion with good strength. Her neck is nontender to palpation range of motion.) Results - Labs Labs: Abnormal Lab Results - Last 24 Hours (Table) 12/07/16 12/07/16 12/07/16 Range/Units 05:41 05:41 19:14 WBC (3.8-10.6) k/uL Hgb (11.4-16.0) gm/dL MCHC (31.0-37.0) g/dL RDW (11.5-15.5) % Neutrophils # (1.3-7.7) k/uL APTT 38.1 H (22.0-30.0) sec TSH 8.460 H (0.465-4.680) mIU/L Total T3 48.0 L (60.0-180.0) ng/dL 12/08/16 12/08/16 12/08/16 Range/Units 02:36 08:33 08:33 WBC 11.2 H (3.8-10.6) k/uL Hgb 11.3 L (11.4-16.0) gm/dL MCHC 28.9 L (31.0-37.0) g/dL RDW 17.0 H (11.5-15.5) % Neutrophils # 9.6 H (1.3-7.7) k/uL APTT 38.5 H 79.2 H (22.0-30.0) sec TSH (0.465-4.680) mIU/L Total T3 (60.0-180.0) ng/dL Microbiology - Last 24 Hours (Table) 12/06/16 09:20 Urine Culture - Final Urine,Catheterized H & H 12/06/16 12/07/16 12/08/16 Range/Units 09:35 05:41 08:33 Hgb 13.0 12.2 11.3 L (11.4-16.0) gm/dL Hct 42.6 40.4 39.1 (34.0-46.0) % Coagulation 12/06/16 12/07/16 Range/Units 09:35 09:37 INR 1.1 1.1 (<1.2) Result Diagrams: 12/08/16 08:33 12/07/16 05:41 - Diagnostic results Lumbar AP/lateral x-ray: report reviewed, image reviewed (X-rays of her lumbar spine and thoracic spine are reviewed. She has osteopenic bone. She has evidence of prior kyphoplasty at T5 and T6 which appears stable. There is a compression fracture at T12 about 60% height loss. There is some sclerosis around the margin of the superior endplate.) Assessment and Plan Plan: Acute on chronic back pain Acute on chronic compression fracture T12 History of compression fractures T5 6 status post cement augmentation with kyphoplasty which are stable. Osteoporosis The patient has evidence of acute on chronic compression fracture T12 it seems to be a source of her symptoms. She did sustain a new fall and the slightly greater than new fracture. She has a TLSO brace at home which she should use whenever she is out of bed and ambulating. She does not need to use the brace while in bed or for bathing. She has been able to make good progress in terms of her overall pain control and mobility. She has been evaluated with medicine and pulmonary medicine and appears to be stabilizing well. She is not having acute changes in those regards and is continue his medical care as needed. From a spine standpoint is okay for patient be discharged home today. She should use her TLSO brace as instructed when she is out of bed. We will plan to treat the new T12 fracture conservatively at this point and see if it continues to make progress. If she is not having significant progress over the next couple of weeks we could consider kyphoplasty at that vertebral body as well. We can follow her up on an outpatient basis I would like to see her back in approximately 2 weeks' time for recheck evaluation and repeat imaging. I discussed this with her and her daughter at bedside answered their questions best my ability C can understand and they're agreeable to plan.
[2016-12-08] MEDS: METOPROLOL SUCCINATE (ER) 50 MG TAB.ER.24H PO SCH (10:04)
[2016-12-08] MEDS: IPRATROPIUM-ALBUTEROL 3 ML NEB INHALATION SCH ×3 (10:47→11:14)
[2016-12-08 11:15] VITALS: RESP 20
[2016-12-08] MEDS: MULTIVITAMINS, THERA 1 EACH TAB PO SCH (11:49)
[2016-12-08] MEDS ORDERED: APIXABAN 2.5 MG TABLET PO SCH (12:45)
[2016-12-08 12:55] VITALS: BP 99/56; PULSE 61; TEMP 97.3
[2016-12-08] MEDS: SODIUM CHLORIDE 0.9% 1,000 ML IV SCH (14:37)
--- NOTE | 2016-12-08 14:49 | P.PN ---
Subjective This is a 71-year-old female who follows with Dr. Workman in the office. She has a known history of coronary artery disease with prior revascularization, severe ischemic cardio myopathy with prior AICD, severe underlying peripheral arterial disease with prior peripheral revascularization, chronic persistent atrial fibrillation/flutter with prior ablation, prior TIA, hypertension, hyperlipidemia, COPD, noncompliance and hypothyroidism. Patient is to not answering all questions this morning, but the questions that she is answering, she indicates that she had fallen at home. She denies passing out, states that she tripped and fell. Patient had been discharged home on Eliquis, has not been taking that at home, EKG on admission here shows a ventricular paced rhythm with underlying atrial flutter. Her heart rate is in the 60s. Blood pressure this morning 158/80 with a heart rate in the 60s, 96% on room air. Chest x-ray reveals patchy density in the right lower lobe which may reflect an infiltrate. No overt congestive heart failure. Abdominal and pelvic CT performed which revealed suspicion of sludge within the gallbladder, diverticulosis without any diverticulitis. CTA of the chest was performed which revealed an L1 compression fracture which may be acute or subacute, no pulmonary embolism. White blood cell count on admission 11.1, 6.7 this morning. Hematoma 12.2, platelet count 190, sodium 140, potassium 4.7, d-dimer 2.4. Magnesium 2.1. Initial troponin 0.035. At the time of my examination this morning, patient appears quite groggy however intermittently does answer questions appropriately. 12/08/2016 Seen and examined this morning, feeling much better today. Much more alert and oriented. Hemodynamically stable. Objective - Vital Signs Vital signs: Vital Signs Temp 97.3 F L 12/08/16 12:00 Pulse 61 12/08/16 12:00 Resp 20 12/08/16 12:00 BP 99/56 12/08/16 12:00 Pulse Ox 94 L 12/08/16 12:00 Intake & Output 12/07/16 12/08/16 12/08/16 18:59 06:59 18:59 Intake Total 360 317.676 521.46 Output Total 200 Balance 360 117.676 521.46 Weight 76.6 kg Intake: Intake, IV Titration 317.676 161.46 Amount Heparin Sodium,Porcine/ 317.676 161.46 D5w Pmx 25,000 unit In Dextrose/Water 1 500ml. bag @ 12 UNITS/KG/HR 16. 56 mls/hr IV .Q24H [facility] Rx #:[id number] Oral 360 360 Output: Urine 200 Other: Voiding Method Diaper Diaper Diaper # Voids 1 1 2 - Exam PHYSICAL EXAMINATION: HEENT: Head is atraumatic, normocephalic. Pupils equal, round. Neck is supple. There is no elevated jugular venous pressure. HEART EXAMINATION: Heart S1 and S2 irregularly irregular a systolic murmur is heard CHEST EXAMINATION: Lungs reveal crackles to bilateral bases ABDOMEN: Soft, nontender. Bowel sounds are heard. No organomegaly noted. EXTREMITIES: 2+ peripheral pulses with no evidence of peripheral edema and no calf tenderness noted. NEUROLOGIC [patient is awake, sleepy, alert and oriented 3 - Labs CBC & Chem 7: 12/08/16 08:33 12/08/16 08:33 Labs: Abnormal Lab Results - Last 24 Hours (Table) 12/07/16 12/07/16 12/08/16 Range/Units 05:41 19:14 02:36 WBC (3.8-10.6) k/uL Hgb (11.4-16.0) gm/dL MCHC (31.0-37.0) g/dL RDW (11.5-15.5) % Neutrophils # (1.3-7.7) k/uL APTT 38.1 H 38.5 H (22.0-30.0) sec Chloride (98-107) mmol/L Carbon Dioxide (22-30) mmol/L BUN (7-17) mg/dL Creatinine (0.52-1.04) mg/dL Glucose (74-99) mg/dL Calcium (8.4-10.2) mg/dL Total T3 48.0 L (60.0-180.0) ng/dL 12/08/16 12/08/16 12/08/16 Range/Units 08:33 08:33 08:33 WBC 11.2 H (3.8-10.6) k/uL Hgb 11.3 L (11.4-16.0) gm/dL MCHC 28.9 L (31.0-37.0) g/dL RDW 17.0 H (11.5-15.5) % Neutrophils # 9.6 H (1.3-7.7) k/uL APTT 79.2 H (22.0-30.0) sec Chloride 110 H (98-107) mmol/L Carbon Dioxide 18 L (22-30) mmol/L BUN 26 H (7-17) mg/dL Creatinine 1.28 H (0.52-1.04) mg/dL Glucose 173 H (74-99) mg/dL Calcium 8.2 L (8.4-10.2) mg/dL Total T3 (60.0-180.0) ng/dL Microbiology - Last 24 Hours (Table) 12/06/16 09:20 Urine Culture - Final Urine,Catheterized Assessment and Plan Plan: Assessment and plan #1 falls #2 atrial flutter with controlled ventricular response, not on anticoagulation #2 known history of coronary artery disease with prior revascularization #4 PAD with prior peripheral revascularizations #5 COPD #6 nicotine dependence #7 hypertension #8 hyperlipidemia #9 prior CVA #10 noncompliance #11 chronic persistent atrial fibrillation #12 ischemic cardio myopathy with prior AICD implant #13 prior VT ablations #14 history of thyroid CA #15 abnormal troponin, 0.035, she denies having any chest discomfort. Negative PE on CAT scan Plan Patient has been initiated on Eliquis here, from cardiology standpoint she may be able to be discharged once cleared by her primary. We will make her a follow -up appointment in the office post discharge. DNP note has been reviewed, I agree with a documented findings and plan of care. Patient was seen and examined.
--- NOTE | 2016-12-08 16:41 | P.PN ---
Subjective 71-year-old female patient with extensive cardiac history including history of coronary artery disease, ischemic cardiomyopathy, atrial fibrillation/flutter, multiple cardiac interventions ablations and currently the patient is an AICD and biventricular pacer in place and addition to previous history of TIA/CVA/ hypertension/hyperlipidemia/COPD/hypothyroidism/peripheral vascular disease, who came into the hospital yesterday after having some altered mentation. Apparently the patient was not speaking and she was mumbling and moaning and she was not following any commands and she had diminished level of consciousness. By the time the daughter arrived home the patient was able to speak however she still remained somewhat confused till she arrived to the hospital. She did not have any focal neurological deficit. No seizure activity was noted. No fever or chills. No aspiration. No cough or sputum production. No chest pain. No shortness of breath. The patient did not pass out however she was weak and she tipped and fell. Note that she is on no anticoagulation due to concern of a GI bleed. The patient has been treated with anticoagulation/Eliquis in the past. The chest x-ray revealed some limited patchy infiltration of the right lung base. CTA of the chest showed no evidence of any pulmonary embolism. There were a cardiomegaly. Segmental atelectasis in the upper lobes predominantly were seen in addition to some background emphysema. No acute pulmonary infiltration and edema or effusion was seen. There was also compression fracture of the T6/T7 spine and L1 fracture was also present that was subacute with 40% loss of anterior height. CAT scan of the abdomen and pelvis also confirmed the presence of mild bibasilar atelectasis. There was sludge within the gallbladder. There was also diverticulosis without active diverticulitis involving the sigmoid colon. Note that the CAT scan of the brain was also done and showed periventricular white matter ischemic changes. There was no mass lesion. No acute infarcts present. Findings are stable compared to the previous CAT scan of the head from July 2016. On the patient is being seen in follow-up. She is doing much better. She has no specific complaints. No reported chest pain. No significant shortness of breath. No cough or sputum production. Hemodynamically stable. There has been no other significant events over the past 24 hours. Objective - Vital Signs Vital signs: Vital Signs Temp 97.3 F L 12/08/16 12:00 Pulse 61 12/08/16 12:00 Resp 20 12/08/16 12:00 BP 99/56 12/08/16 12:00 Pulse Ox 94 L 12/08/16 12:00 Intake & Output 12/07/16 12/08/16 12/08/16 18:59 06:59 18:59 Intake Total 360 317.676 521.46 Output Total 200 Balance 360 117.676 521.46 Weight 76.6 kg Intake: Intake, IV Titration 317.676 161.46 Amount Heparin Sodium,Porcine/ 317.676 161.46 D5w Pmx 25,000 unit In Dextrose/Water 1 500ml. bag @ 12 UNITS/KG/HR 16. 56 mls/hr IV .Q24H YENNIFER Rx #:[id number] Oral 360 360 Output: Urine 200 Other: Voiding Method Diaper Diaper Diaper # Voids 1 1 2 - Exam Gen. appearance the patient is calm and comfortable likely distress. Head is atraumatic normocephalic. Neck is soft and there is no JVDs no goiter or neck masses. Lungs sounds are diminished in lung bases otherwise clear. No wheezes overall currently crackles. Heart sounds are irregular, possible sinus and there is no significant murmurs appreciated.Abdominal exam revealed normal bowel sounds. The abdomen was soft, non-tender, and without masses, organomegaly , or appreciable enlargement of the abdominal aorta.Examination of the extremities revealed easily palpable radial, femoral and pedal pulses. There was no cyanosis, clubbing or edema. Neurologic exam is nonfocal and the patient is awake and oriented and there is no focal neurological deficit. Skin is negative for any ulcers or wounds or lesions. Skeletal exam is negative for any kyphoscoliosis or joint deformities or arthritis. - Labs CBC & Chem 7: 12/08/16 08:33 12/08/16 08:33 Labs: Abnormal Lab Results - Last 24 Hours (Table) 12/07/16 12/07/16 12/08/16 Range/Units 05:41 19:14 02:36 WBC (3.8-10.6) k/uL Hgb (11.4-16.0) gm/dL MCHC (31.0-37.0) g/dL RDW (11.5-15.5) % Neutrophils # (1.3-7.7) k/uL APTT 38.1 H 38.5 H (22.0-30.0) sec Chloride (98-107) mmol/L Carbon Dioxide (22-30) mmol/L BUN (7-17) mg/dL Creatinine (0.52-1.04) mg/dL Glucose (74-99) mg/dL Calcium (8.4-10.2) mg/dL Total T3 48.0 L (60.0-180.0) ng/dL 12/08/16 12/08/16 12/08/16 Range/Units 08:33 08:33 08:33 WBC 11.2 H (3.8-10.6) k/uL Hgb 11.3 L (11.4-16.0) gm/dL MCHC 28.9 L (31.0-37.0) g/dL RDW 17.0 H (11.5-15.5) % Neutrophils # 9.6 H (1.3-7.7) k/uL APTT 79.2 H (22.0-30.0) sec Chloride 110 H (98-107) mmol/L Carbon Dioxide 18 L (22-30) mmol/L BUN 26 H (7-17) mg/dL Creatinine 1.28 H (0.52-1.04) mg/dL Glucose 173 H (74-99) mg/dL Calcium 8.2 L (8.4-10.2) mg/dL Total T3 (60.0-180.0) ng/dL Microbiology - Last 24 Hours (Table) 12/06/16 09:20 Urine Culture - Final Urine,Catheterized Assessment and Plan Plan: Assessment 1 altered mentation currently under investigation. Patient has regained her mentation back to baseline and there is no focal neurological deficit. CAT scan of the brain is also negative. Rule out TIA. Mother the patient on no anticoagulants for now 2 limited infiltration of the right lung base probably some atelectasis. CAT scan of the chest shows no acute abnormalities and there is some background COPD 3 COPD currently inactive in stable 4 CHF 5 coronary artery disease with previous revascularization 6 chronic atrial fibrillation rate controlled. 7 AICD placement. 8 hypertension 9 hyperlipidemia 10 previous DVT, nonsustained currently on amiodarone 11 thyroid cancer the previous thyroidectomy 12 diverticular disease with previous history of GI bleed 13 compression fracture of the T-spine Plan No active pulmonary issues. Anticoagulation per cardiology. Also noted was appreciated regarding the chronic back pain and compression fracture of the T12 and the T5/6 spine. This will need to be followed up on outpatient basis. A back brace was offered. Patient is ambulating. Discharge home today.
--- NOTE | 2016-12-08 18:43 | P.DS ---
Providers Date of admission: 12/07/16 18:04 Expected date of discharge: 12/08/16 Attending physician: Darron Mccormick Consults: 12/06/16 16:02 Consult Physician Routine Consulting Provider: Domi Lomas Consult Reason/Comments: pleural effusions Do you want consulting provider notified?: Yes 12/06/16 16:13 Consult Physician Routine Consulting Provider: Christian Lowe Consult Reason/Comments: chest pain Do you want consulting provider notified?: Yes 12/07/16 11:39 Consult Physician Routine Consulting Provider: Evelyn Torres Consult Reason/Comments: overactive thyroid Do you want consulting provider notified?: Yes 12/07/16 14:37 Consult Physician Routine Consulting Provider: Gay Georges Consult Reason/Comments: fall/back pain patient known to you Do you want consulting provider notified?: Yes Primary care physician: [facility] Course: FINAL DIAGNOSES: -Fall with possible blunt injury to the back and shoulder -Possible acute concussion secondary to fall and hitting head on the floor, now recovered. -Acute confusion, multifactorial could be medications, secondary to intractable pain, improving -Chronic congestive heart failure from ischemic cardiomyopathy EF less than 20% with AICD in place. -Moderate mitral regurgitation on rheumatic -History of atrial flutter fibrillation ventricular tachycardia -Coronary artery disease with prior history of stent. -COPD in an ex-smoker. -Hyperlipidemia. -Hypothyroidism, -Peripheral artery disease. -Colonic diverticulosis. HOSPTIAL COURSE: 71-year-old female who has a complex medical history, presented to the emergency department with what appeared to be chest pain and difficulty breathing. After arriving to the floor patient questioned again as she was continually moaning in pain, patient finally told us that she fell was having back pain. Diagnostic imaging ordered lumbar and thoracic spine, abdomen and pelvis, head CT. Consults to pulmonology, cardiology, endocrinology, and orthopedics placed. Her daily place patient on IV heparin, educated patient regarding the importance of compliance with her anticoagulation medication, echocardiogram with Doppler as well as remaining troponins drawn. Converted her heparin to Eliquis. Had no further episodes of chest pain , patient cleared from a cardiology standpoint for discharge. Pulmonology rendered patient's respiratory status stable for now. No further episodes of any shortness of breath wheezing cough and cleared for discharge. Endocrinology saw the patient for hypothyroidism, lab values revealed abnormal thyroid function test. Recommended continuation of levothyroxine at 125 g, and cleared for discharge from an endocrinology standpoint. Orthopedics reviewed the diagnostic imaging revealed acute on chronic compression fracture at T12 which seem to be the source of her symptoms. She's had a new fall however previous damage is slightly greater than the new fracture. Recommend continuation of the TLSO brace should wear anytime that she is out of bed and ambulating. Orthopedics has cleared her for discharge from their standpoint. Overall patient's conditions have stabilized, ambulating with some assistance to and from the bathroom tolerating her diet eating between 75 and 100% of her meals. Last BM prior to admission. CONSULTANTS have cleared the patient for discharge patient will be discharged home to the care of her family. PHYSICAL EXAM: CARDIOVASCULAR: Irregular rhythm, no edema RESPIRATORY: Effort normal, lungs diminished bilaterally to the bases. MUSKULOSKELETAL: Continues to have lumbar and sacral spinal tenderness PSYCHIATRY: Alert and oriented 3, mood and affect normal. Patient was seen and examined by nurse practitioner Estrella Aguilar in all elements of the case discussed with attending Dr. Mccormick DISPOSITION: Home to the care of her son. Plan - Discharge Summary New Discharge Prescriptions: New Aspirin 81 mg PO DAILY Apixaban [Eliquis] 2.5 mg PO BID #60 tab Continue Ergocalciferol (Vitamin D2) [Drisdol] 50,000 unit PO WE Albuterol Sulfate [Ventolin HFA] 1 puff INHALATION RT-Q4H PRN PRN Reason: Shortness Of Breath Multivitamins, Thera [Multivitamin (formulary)] 1 tab PO DAILY ALPRAZolam [Xanax] 0.25 mg PO BID PRN #30 tab PRN Reason: Anxiety Omeprazole [PriLOSEC] 20 mg PO AC-BRKFST #30 cap Atorvastatin [Lipitor] 40 mg PO HS Amiodarone [Cordarone] 200 mg PO HS Spironolactone [Aldactone] 25 mg PO DAILY@1700 Mexiletine [Mexitil] 150 mg PO Q8HR Metoprolol Succinate (ER) [Toprol XL] 50 mg PO DAILY Baclofen [Lioresal] 10 mg PO TID PRN PRN Reason: Mild Spasms Levothyroxine Sodium [Synthroid] 125 mcg PO SUFRSA HYDROcodone/APAP 7.5-325MG [Floydada 7.5-325] 1 tab PO Q12H PRN PRN Reason: Severe Pain Gabapentin [Neurontin] 300 mg PO QID Furosemide [Lasix] 80 mg PO DAILY@0800 Furosemide [Lasix] 40 mg PO DAILY@1400 OXcarbazepine [Trileptal] 150 mg PO TID Alendronate Sodium [Fosamax] 70 mg PO Q7D Albuterol Nebulized [Ventolin Nebulized] 2.5 mg INHALATION RT-QID Discharge Medication List Albuterol Sulfate [Ventolin HFA] 1 puff INHALATION RT-Q4H PRN 04/16/14 [History] Ergocalciferol (Vitamin D2) [Drisdol] 50,000 unit PO WE 04/16/14 [History] Multivitamins, Thera [Multivitamin (formulary)] 1 tab PO DAILY 12/10/14 [History ] ALPRAZolam [Xanax] 0.25 mg PO BID PRN #30 tab 01/07/15 [Rx] Omeprazole [PriLOSEC] 20 mg PO AC-BRKFST #30 cap 04/25/15 [Rx] Atorvastatin [Lipitor] 40 mg PO HS 08/17/15 [History] Amiodarone [Cordarone] 200 mg PO HS 09/17/15 [History] Spironolactone [Aldactone] 25 mg PO DAILY@1700 10/30/15 [History] Mexiletine [Mexitil] 150 mg PO Q8HR 04/27/16 [History] Baclofen [Lioresal] 10 mg PO TID PRN 05/02/16 [History] Metoprolol Succinate (ER) [Toprol XL] 50 mg PO DAILY 05/02/16 [History] Levothyroxine Sodium [Synthroid] 125 mcg PO SUFRSA 08/21/16 [History] Albuterol Nebulized [Ventolin Nebulized] 2.5 mg INHALATION RT-QID 12/06/16 [ History] Alendronate Sodium [Fosamax] 70 mg PO Q7D 12/06/16 [History] Furosemide [Lasix] 40 mg PO DAILY@1400 12/06/16 [History] Furosemide [Lasix] 80 mg PO DAILY@0800 12/06/16 [History] Gabapentin [Neurontin] 300 mg PO QID 12/06/16 [History] HYDROcodone/APAP 7.5-325MG [Floydada 7.5-325] 1 tab PO Q12H PRN 12/06/16 [History] OXcarbazepine [Trileptal] 150 mg PO TID 12/06/16 [History] Apixaban [Eliquis] 2.5 mg PO BID #60 tab 12/08/16 [Rx] Aspirin 81 mg PO DAILY 12/08/16 [Rx] Follow up Appointment(s)/Referral(s): Ishmael Workman MD [STAFF PHYSICIAN] - 12/16/16 1:30 pm Roberto Martínez DO [Primary Care Provider] - 12/14/16 12:20 pm Gay Georges DO [Doctor of Osteopathic Medicine] - 12/26/16 8:15 am Juwan Rebolledo MD [STAFF PHYSICIAN] - 12/29/16 10:30 am Ambulatory/Diagnostic Orders: Basic Metabolic Panel [LAB.AMB] Location: Determined By Patient Patient Instructions/Handouts: Hypothyroidism (DC), Narcotic Pain Management ( DC) Activity/Diet/Wound Care/Special Instructions: Patient is to use her TLSO spinal med brace that she has at home. She should wear the brace whenever she is up out of bed. She does not need use the brace while in bed or drink bathing. She should avoid any repetitive bending twisting or lifting. No lifting greater than 15 pounds. No bending or stooping. Discharge Disposition: HOME SELF-CARE
[2016-12-09] MEDS ORDERED: LEVOTHYROXINE 125 MCG TAB PO SCH (06:30)
--- NOTE | 2016-12-09 19:28 | DS ---
DISCHARGE SUMMARY DATE OF SERVICE: 12/08/2016 ATTENDING NOTE: This patient seen and examined by me on 12/08/2016. I discussed with my LEADERSHIP DEVELOPMENT INSTRUCTOR, Ms. Aguilar. This patient is doing much better. Feels back to baseline. Sitting up. Pain is controlled. The patient is felt to have a concussion from the fall. Patient recovered rather quickly. From a Pulmonary and Cardiac standpoint, otherwise she is fine. Patient per Cardiology is to go on Eliquis. PHYSICAL EXAMINATION: LUNGS: Fair air entry. CARDIOVASCULAR: Heart sounds irregular. PSYCH: A and Ox3. DISPOSITION: Home. MMODL / IJN: [id number] /
--- NOTE | 2016-12-09 21:46 | ECHOF ---
Referral Reason:afib MEASUREMENTS -------- HEIGHT: 165.1 cm WEIGHT: 69.0 kg BP: 159/86 IVSd: 1.3 cm (0.6 - 1.1) LVIDd: 5.3 cm (3.9 - 5.3) LVPWd: 1.1 cm (0.6 - 1.1) IVSs: 1.7 cm LVIDs: 4.1 cm LVPWs: 1.4 cm LA Diam: 4.8 cm (2.7 - 3.8) LAESV Index (A-L): 80.82 ml/m Ao Diam: 2.6 cm (2.0 - 3.7) AV Cusp: 1.6 cm (1.5 - 2.6) LA Diam: 5.2 cm (2.7 - 3.8) MV EXCURSION: 20.824 mm (> 18.000) MV EF SLOPE: 46 mm/s (70 - 150) EPSS: 1.4 cm MV E Jeronimo: 0.82 m/s MV DecT: 395 ms MV A Jeronimo: 0.37 m/s MV E/A Ratio: 2.23 RAP: 5.00 mmHg RVSP: 40.30 mmHg FINDINGS -------- Paced rhythm. This was a technically adequate study. The left ventricular size is normal. Left ventricular wall thickness is normal. Overall left ventricular systolic function is mild-moderately impaired with, an EF between 40 - 45 %. Posterior hypokinesis The right ventricle is normal in size. LA is severely dilated >40 ml/m2 The right atrial size is normal. The aortic valve is trileaflet, and appears structurally normal. No aortic stenosis or regurgitation. Moderate mitral regurgitation is present. Mild tricuspid regurgitation present. There is mild pulmonary hypertension. The right ventricular systolic pressure, as measured by Doppler, is 40.30mmHg. There is no pulmonic regurgitation present. The aortic root size is normal. There is no pericardial effusion. CONCLUSIONS -------- 1. The left ventricular size is normal. 2. The right ventricular systolic pressure, as measured by Doppler, is 40.30mmHg. 3. Left ventricular wall thickness is normal. 4. Overall left ventricular systolic function is mild-moderately impaired with, an EF between 40 - 45 %. 5. Posterior hypokinesis 6. LA is severely dilated >40 ml/m2 7. The aortic valve is trileaflet, and appears structurally normal. No aortic stenosis or regurgitation. 8. Moderate mitral regurgitation is present. 9. Mild tricuspid regurgitation present. 10. There is mild pulmonary hypertension. PLAYERS CLUB REPRESENTATIVE: Verona Ford RDCS
--- NOTE | 2016-12-12 11:12 | CDI ---
In responding to this query, please exercise your independent professional judgment. The [facility] Coding Staff and Clinical Documentation Specialists appreciate your assistance in clarifying documentation, maintaining compliance with coding guidelines, accurately documenting patients condition and capturing severity of illness. The fact that a question is asked does not imply that any particular answer is desired or expected. Communication forms are a method of clarifying documentation and are not made part of the Legal Health Record. Thank you in advance for your clarification. Last Revision, May 2016 [place] [address] [facility] [place] [address] Documentation Clarification Form Date: 12/12/2016 10:59:00 AM From: Nayely Collier Admit Date: 12/07/2016 6:04:00 PM Patient Name: Iram Kinsey Visit Number: [id number] Discharge Date: 12/08/16 Dr. Darron Mccormick/Neil Harry CHF is documented in the H&P, 12/07 Consult, 12/07 & 12/08 progress note and discharge summary. History/Risk Factors: ischemic cardiomyopathy with AICD, atrial flutter, CAD with stent Echocardiogram Results: Left ventricular systolic function is mild-moderately impaired with, an EF between 40-45%. Chest X Ray: No overt failure Treatment: PO Lasix 12/07 X2 Consults: Cardiolgy by Dr. Miramontes In your professional opinion, can you please clarify the acuity and type of CHF if known? Systolic Heart Failure: Acute Chronic Acute on Chronic Diastolic Heart Failure: Acute Chronic Acute on Chronic Systolic & Diastolic Heart Failure: Acute Chronic Acute on Chronic Unable to determine Other, please specify Please document addendum in your discharge summary in order to capture severity of illness and risk of mortality. Include clinical findings that support your diagnosis. FYI: Press F11 to launch patient chart. If you have a question about this query, please contact Afsaneh Boss, Launch Leader, [place] at [phone] between 8am and 5pm. JUDY
--- NOTE | 2016-12-14 09:19 | CDI ---
In responding to this query, please exercise your independent professional judgment. The [facility] Coding Staff and Clinical Documentation Specialists appreciate your assistance in clarifying documentation, maintaining compliance with coding guidelines, accurately documenting patients condition and capturing severity of illness. The fact that a question is asked does not imply that any particular answer is desired or expected. Communication forms are a method of clarifying documentation and are not made part of the Legal Health Record. Thank you in advance for your clarification. Last Revision, May 2016 Coral [place] [address] [place] [address] Documentation Clarification Form Date: 12/12/2016 10:59:00 AM From: Nayely Nando Admit Date: 12/07/2016 6:04:00 PM Patient Name: Iram Kinsey Visit Number: [id number] Discharge Date: 12/08/16 Dr. Darron Mccormick/Estrella Trejo CHF is documented in the H&P, 12/07 Consult, 12/07 & 12/08 progress note and discharge summary. History/Risk Factors: ischemic cardiomyopathy with AICD, atrial flutter, CAD with stent Echocardiogram Results: Left ventricular systolic function is mild-moderately impaired with, an EF between 40-45%. Chest X Ray: No overt failure Treatment: PO Lasix 12/07 X2 Consults: Cardiolgy by Dr. Miramontes In your professional opinion, can you please clarify the type of CHF if known? Systolic Heart Failure: Diastolic Heart Failure: Systolic & Diastolic Heart Failure: Unable to determine Other, please specify Please document addendum in your discharge summary in order to capture severity of illness and risk of mortality. Include clinical findings that support your diagnosis. FYI: Press F11 to launch patient chart. If you have a question about this query, please contact Afsaneh Boss, Dynamite Packing Machine Operator, [place] at [phone] between 8am and 5pm. JUDY
--- NOTE | 2016-12-20 14:21 | CDI ---
In responding to this query, please exercise your independent professional judgment. The [facility] Coding Staff and Clinical Documentation Specialists appreciate your assistance in clarifying documentation, maintaining compliance with coding guidelines, accurately documenting patients condition and capturing severity of illness. The fact that a question is asked does not imply that any particular answer is desired or expected. Communication forms are a method of clarifying documentation and are not made part of the Legal Health Record. Thank you in advance for your clarification. Last Revision, May 2016 Coral [place] [address] [place] [address] Documentation Clarification Form Date: 12/12/2016 10:59:00 AM From: Nayely Nando Admit Date: 12/07/2016 6:04:00 PM Patient Name: Iram Kinsey Visit Number: [id number] Discharge Date: 12/08/16 Dr. Darron Mccormick?[facility] [place] CHF is documented in the H&P, 12/07 Consult, 12/07 & 12/08 progress note and discharge summary. History/Risk Factors: ischemic cardiomyopathy with AICD, atrial flutter, CAD with stent Echocardiogram Results: Left ventricular systolic function is mild-moderately impaired with, an EF between 40-45%. Chest X Ray: No overt failure Treatment: PO Lasix 12/07 X2 Consults: Cardiolgy by Dr. Miraomntes In your professional opinion, can you please clarify the type of CHF if known? Systolic Heart Failure: Diastolic Heart Failure: Systolic & Diastolic Heart Failure: Unable to determine Other, please specify Please document addendum in your discharge summary in order to capture severity of illness and risk of mortality. Include clinical findings that support your diagnosis. FYI: Press F11 to launch patient chart. If you have a question about this query, please contact Afsaneh Boss, Tank Cooper, [place] at [phone] between 8am and 5pm. JUDY
== END 2016-12-08 16:23 | disposition home or self-care (01) | DRG 89 ==
LOC: EC 08:55 → 6SEL 13:54 → OBSVTOIN 12-07 18:04
PROVIDERS: ADMIT Hospitalist; ATTEND Hospitalist
DX: S06.0X9A Concussion with loss of consciousness of unspecified duration, initial encounter (principal); I48.1 Persistent atrial fibrillation; I11.0 Hypertensive heart disease with heart failure; I50.9 Heart failure, unspecified; M80.88XA Other osteoporosis with current pathological fracture, vertebra(e), initial encounter for fracture; I48.92 Unspecified atrial flutter; J98.11 Atelectasis; J44.9 Chronic obstructive pulmonary disease, unspecified; I25.5 Ischemic cardiomyopathy; G89.29 Other chronic pain; I25.10 Atherosclerotic heart disease of native coronary artery without angina pectoris; E78.5 Hyperlipidemia, unspecified; E89.0 Postprocedural hypothyroidism; K21.9 Gastro-esophageal reflux disease without esophagitis; I49.3 Ventricular premature depolarization; I05.1 Rheumatic mitral insufficiency; K57.30 Diverticulosis of large intestine without perforation or abscess without bleeding; F41.0 Panic disorder [episodic paroxysmal anxiety]; I73.9 Peripheral vascular disease, unspecified; I25.2 Old myocardial infarction; Z79.83 Long term (current) use of bisphosphonates; Z79.2 Long term (current) use of antibiotics; Z79.899 Other long term (current) drug therapy; Z86.19 Personal history of other infectious and parasitic diseases; Z87.891 Personal history of nicotine dependence; Z85.850 Personal history of malignant neoplasm of thyroid; Z86.73 Personal history of transient ischemic attack (TIA), and cerebral infarction without residual deficits; Z95.810 Presence of automatic (implantable) cardiac defibrillator; Z95.5 Presence of coronary angioplasty implant and graft; Z85.41 Personal history of malignant neoplasm of cervix uteri; Z86.718 Personal history of other venous thrombosis and embolism; W19.XXXA Unspecified fall, initial encounter; Y92.009 Unspecified place in unspecified non-institutional (private) residence as the place of occurrence of the external cause; Z88.6 Allergy status to analgesic agent; Z88.1 Allergy status to other antibiotic agents; Z91.041 Radiographic dye allergy status; Z88.5 Allergy status to narcotic agent; Z91.013 Allergy to seafood; Z88.8 Allergy status to other drugs, medicaments and biological substances; Z91.018 Allergy to other foods; Z91.19 Patient's noncompliance with other medical treatment and regimen
CPT/HCPCS: 36415; 70450; 71020; 71275; 72070; 72100; 74176; 80048; 80053; 81003; 82550; 82553; 83735; 84436; 84439; 84443; 84480; 84484; 85025; 85379; 85610; 85730; 87086; 93005; 93306; 94640; 96361; 96366; 96374; 96375; 99285